=== PATIENT | male | born 1965 | race Caucasian/White ===

== ENCOUNTER 2021-05-17 13:21 | Observation (INO) ==
[~2021-05-17 13:21] MED LIST: ADENOSINE IV SOLN 3 MG/ML 2 ML VIAL IV ONE; dilTIAZem HCl 5 MG/ML 5 ML VIAL IV ONE
[2021-05-17] MEDS ORDERED: ASPIRIN CHEW 324 MG PO STA (13:28)
[2021-05-17] MEDS ORDERED: SODIUM CHLORIDE 0.9% 1000ML 1,000 ML IV STA (13:28)
[2021-05-17] MEDS ORDERED: STAT IV Infusion **Titration per Protocol STA (13:29)
[2021-05-17] MEDS ORDERED: dilTIAZem HCL 125 MG in DEXTROSE 5% 100 ML IV SCH (13:30)
[2021-05-17 13:51] LABS: Basophils # (auto) 0.03 K/uL (0-0.2); Basophils % (auto) 0.5 %; Eosinophils # (auto) 0.01 K/uL (0-0.5); Eosinophils % (auto) 0.2 %; Hematocrit (blood only) 41.2 % (42-52); Hemoglobin 14.5 g/dL (14.0-18.0); Immature Granulocytes # (auto) 0.01 K/uL (0.00-0.02); Immature Granulocytes % (auto) 0.2 %; Mean Corpuscular Hgb Conc 35.2 g/dL (32-36); Mean Corpuscular Volume 93.8 fL (80-100); Mean Platelet Volume 9.8 fL (7.4-10.4); Monocytes # (auto) 0.66 K/uL (0.11-0.59); Monocytes % (auto) 10.1 %; Platelet Count 205 K/uL (130-400); RDW Coefficient of Variation 13.3 % (11.5-14.5); RDW Standard Deviation 46.1 fL (36.4-46.3); Red Blood Count 4.39 M/uL (4.7-6.1); White Blood Count 6.51 K/uL (4.8-10.8)
[2021-05-17 13:56] LABS: iSTAT Creatinine 0.7 mg/dl (0.6-1.3); iSTAT Hemoglobin 14.3 g/dl (14.0-18.0); iSTAT Ionized Calcium 1.14 mmol/l (1.12-1.32); iSTAT Potassium 3.3 mmol/L (3.3-5.0)
[2021-05-17] MEDS ORDERED: OPTIRAY 320 125ml IV ONE (13:56)
[2021-05-17 14:06] LABS: INR 1.1 (0.9-1.1); Partial Thromboplastin Time 26.6 Seconds (21.0-31.0); Prothrombin Time 10.8 Seconds (9.0-12.0)
[2021-05-17 14:08] LABS: BUN Creatinine Ratio 24.1 (10-20); Blood Urea Nitrogen 17 mg/dl (7-18); Calcium 8.1 mg/dl (8.5-10.1); Carbon Dioxide 23 mmol/L (21-32); Chloride 109 mmol/L (98-107); Creatinine Clr Calc Pharmacy 132.7 ml/min; Est GFR (African American) 125.5 ml/min; Est GFR (Non-African American) 108.3 ml/min; Glucose 109 mg/dl (70-99); Lipase 77 U/L (73-393); Magnesium 1.7 mg/dl (1.8-2.4); Potassium 3.3 mmol/L (3.5-5.1); Sodium 142 mmol/L (136-145)
[2021-05-17 14:13] LABS: Troponin I < 0.015 ng/ml (0-0.045)
--- NOTE | 2021-05-17 14:20 | XRay Report ---
XR chest 1V portable HISTORY: 55 years-old Male Chest Pain acute atypical chest pain COMPARISON: CTA chest of same day, Chest radiograph 10/04/2020 TECHNIQUE: Portable AP view of the chest FINDINGS: Cardiac silhouette is mildly enlarged. Mild right hemidiaphragmatic elevation. No pneumothorax, pleur al effusion, airspace consolidation or overt pulmonary edema. The bones of the chest appear grossly i ntact. Degenerative changes of the shoulders and spine. IMPRESSION: No acute process. ACT 112: Negative or not required by law. The above report was generated using voice recognition software. It may contain grammatical, syntax o r spelling errors. Electronically signed by: Carl Hernandez M.D. 05/17/2021 2:18 PM
--- NOTE | 2021-05-17 14:26 | CT Scan Report ---
CT angio chest PE protocol CT DOSE: 606.42 mGy.cm HISTORY: 55 years-old Male with Chest Pain, eval for PE. Acute atypical chest pain with shortness o f breath TECHNIQUE: Multiple CTA images of the chest were obtained after the intravenous administration of 120 ml Optiray. Coronal and sagittal MIPS were obtained from the axial data set and were submitted for review. All measurements were obtained according to NASCET criteria. A dose lowering technique was u tilized adhering to the principles of ALARA. COMPARISON: Chest radiograph of same day FINDINGS: CTA: The heart is upper limits of normal in size. No pericardial effusion. Mild coronary artery calcificat ions. No thoracic aortic aneurysm or dissection. The inferior lung bases are partially imaged and are outside the [id number]. Subsegmental branches are not well opacified secondary to contrast bolus timing. No pulmonary emboli are identified. CT CHEST: Unremarkable thyroid. No adenopathy. No pneumothorax, pleural effusion, airspace consolidation or ove rt pulmonary edema. Minimal dependent bibasilar atelectasis. There are no suspicious pulmonary nodule s or masses. Central airways are patent. No pneumoperitoneum. No acute process of the imaged upper abdomen. There are a few cysts of the left hepatic lobe present measuring up to 1.5 cm. No acute fracture. Degenerative changes of the shoulders and spine. Several corticated ossifications project along the inferior margin of the right glenoid. IMPRESSION: No acute intrathoracic abnormality. No pulmonary emboli. ACT 112: Negative or not required by law. The above report was generated using voice recognition software. It may contain grammatical, syntax o r spelling errors. Electronically signed by: Carl Hernandez M.D. 05/17/2021 2:24 PM
[2021-05-17] MEDS ORDERED: POTASSIUM CHLORIDE CRTAB 20 MEQ TABCR PO STA (14:55)
[2021-05-17] MEDS: POTASSIUM CHLORIDE / WTR 10 MEQ/100 ML PLCT IV SCH ×2 (15:12→16:13)
[2021-05-17] MEDS: MAGNESIUM SULFATE / D5W 1 GM/100 ML BAG IV SCH ×2 (15:18→16:14)
--- NOTE | 2021-05-17 15:43 | History & Physical Report ---
Date of Service May 17, 2021 Assessment & Plan (1) Atrial fibrillation with RVR: Paroxysmal atrial fibrillation with RVR/hypertension/holiday heart- The patient will be admitted to telemetry for serial cardiac enzymes, serial EKG's, cardiac rhythm monitoring and a 2-D echocardiogram with Dopplers. Stop Cardizem drip that was just begun Hold lisinopril Place on metoprolol tartrate 25 mg p.o. twice daily Lopressor 5 mg IV every 4 hours as needed heart rate greater than 110 Klor-Con 40 mEq p.o. x1, K riders 10 mEq x 2, magnesium sulfate 2 g IV. NSS + KCl 20 mEq at 125 mils per hour Follow serial BMP and magnesium levels Counseling the patient regarding alcohol intake and recurrent holiday heart. 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 Check a fasting lipid panel Present on Admission?: Yes (4) HTN (hypertension): See above Present on Admission?: Yes (5) Hypokalemia: See above Present on Admission?: Yes (6) Hypomagnesemia: See above Present on Admission?: Yes (7) Dehydration: Replacing IV fluids as noted above. Present on Admission?: Yes History of Present Illness Chief Complaint: The patient presents to the emergency department with complaint of waking up this morning with palpitations similar to his previous episode of atrial fibrillation about 1 year ago. Primary Care Provider: Mamadou Pichardo The patient is a 55-year-old male with a past medical history including paroxysmal atrial fibrillation, dyslipidemia and hypertension. He presents to the emergency department in atrial fibrillation with RVR, in similar circumstances to his previous episode, where he has had significant alcohol intake over the past 3 days. He woke up this morning in atrial fibrillation with rapid heart rate, reports taking 2 metoprolol tartrate 25 mg tablets at 7 AM, took a third tablet at 9 AM, and then went out golfing in the hot sun. Work-up in the emergency department including the following significant laboratories: Potassium 3.3, magnesium 1.7. Patient was COVID-19 negative Chest x-ray showed no abnormalities. CT angiography of chest showed no PE or any other abnormalities. The patient was given adenosine 6 mg IV by the ED, then a 25 mg bolus of IV diltiazem, and then started on a diltiazem drip. He was also given aspirin 324 mg x 1 I discontinued diltiazem drip. He will get 40 mEq Klor-Con in the ED, along with KCl 10 mEq IV riders x2, and magnesium sulfate 2 g IV, before being admitted to telemetry unit Allergies Allergy/AdvReac Type Severity Reaction Status Date / Time No Known Allergies Allergy Unverified 05/17/21 15:15 Home Medications Medication Instructions Recorded Confirmed Type multivitamin with minerals [One 1 tab PO QDD 10/04/20 05/17/21 History Daily Men's 50+] lisinopril 40 mg tablet 40 mg PO QAM tab 10/09/20 05/17/21 History multivitamin 1 tab PO DAILY 05/17/21 05/17/21 History Past Med/Surg History Medical History HTN (hypertension) Surgical History No pertinent past surgical history Social History Smoking Status: Former smoker Feels Safe at Home: Yes Review of Systems Review of Systems: The patient denies cough, lower extremity swelling, sore throat, fevers, chills, sweats, nausea, vomiting, diarrhea , constipation, abdominal pain, pelvic pain, blood in urine or stool, dysuria, urinary frequency or urgency, lightheadedness, dizziness, headache, memory loss, loss of consciousness, rash, abnormal bruising or bleeding, imbalance, focal or generalized weakness, numbness or tingling in arms or legs, generalized arthralgias or myalgias, back or neck pain, or night sweats. The review of systems is otherwise negative other than for that already noted above, and at least 10 systems have been reviewed. Physical Exam Physical Exam: The patient is awake, alert and oriented 3, well developed and well nourished, normocephalic and atraumatic, lying in bed and in no acute distress. HEENT--PERRL, EOMI, mucous membranes and oropharynx mildly dry. Neck--supple. No JVD. No bruits. Thyroid normal, trachea midline, no adenopathy. Heart--irregularly irregular and tachycardic. No murmurs, rubs or gallops. Lungs--clear bilaterally, no respiratory distress, no accessory muscle use. Abdomen--normal bowel sounds and soft. Nontender. Nondistended, no hernias or masses, no organomegaly. Extremities--no cyanosis or clubbing. No edema. Dermatologic--normal skin turgor, normal color, no abnormal lymph nodes, no rash. Neurologic--cranial nerves II through XII grossly intact. Rheumatologic--normal range of motion. Psychiatric--normal affect. Results & Data Results & Data ([facility]) Vital Signs (Past 12 Hours) Vital Signs Temp Pulse Resp BP Pulse Ox 05/17/21 14:21 96 05/17/21 14:15 120 H 13 106/74 97 05/17/21 14:06 107 H 16 05/17/21 13:45 115 H 21 106/82 05/17/21 13:30 98 H 18 93/64 L 05/17/21 13:28 97 05/17/21 13:26 153 H 22 05/17/21 13:11 98.2 F 165 H 24 108/74 98 Laboratory Results Laboratory Results WBC 6.51 K/uL (4.8-10.8) 05/17/21 13:39 RBC 4.39 M/uL (4.7-6.1) L 05/17/21 13:39 Hgb 14.5 g/dL (14.0-18.0) 05/17/21 13:39 POC Hgb 14.3 g/dl (14.0-18.0) 05/17/21 13:44 Hct 41.2 % (42-52) L 05/17/21 13:39 POC Hct 42 % (42-52) 05/17/21 13:44 MCV 93.8 fL (80-100) 05/17/21 13:39 MCH 33.0 pg (25-34) 05/17/21 13:39 MCHC 35.2 g/dL (32-36) 05/17/21 13:39 RDW Std Deviation 46.1 fL (36.4-46.3) 05/17/21 13:39 RDW Coeff of Carrie 13.3 % (11.5-14.5) 05/17/21 13:39 Plt Count 205 K/uL (130-400) 05/17/21 13:39 MPV 9.8 fL (7.4-10.4) 05/17/21 13:39 Immature Gran % (Auto) 0.2 % 05/17/21 13:39 Neut % (Auto) 69.0 % 05/17/21 13:39 Lymph % (Auto) 20.0 % 05/17/21 13:39 Rice % (Auto) 10.1 % 05/17/21 13:39 Eos % (Auto) 0.2 % 05/17/21 13:39 Baso % (Auto) 0.5 % 05/17/21 13:39 Neut # (Auto) 4.50 K/uL (1.4-6.5) 05/17/21 13:39 Lymph # (Auto) 1.30 K/uL (1.2-3.4) 05/17/21 13:39 Rice # (Auto) 0.66 K/uL (0.11-0.59) H 05/17/21 13:39 Eos # (Auto) 0.01 K/uL (0-0.5) 05/17/21 13:39 Baso # (Auto) 0.03 K/uL (0-0.2) 05/17/21 13:39 Immature Gran # (Auto) 0.01 K/uL (0.00-0.02) 05/17/21 13:39 PT 10.8 Seconds (9.0-12.0) 05/17/21 13:39 INR 1.1 (0.9-1.1) 05/17/21 13:39 APTT 26.6 Seconds (21.0-31.0) 05/17/21 13:39 PTT Ratio 1.0 05/17/21 13:39 POC Sodium 143 mmol/L (135-144) 05/17/21 13:44 Sodium 142 mmol/L (136-145) 05/17/21 13:39 POC Potassium 3.3 mmol/L (3.3-5.0) 05/17/21 13:44 Potassium 3.3 mmol/L (3.5-5.1) L 05/17/21 13:39 POC Chloride 106 mmol/L (101-112) 05/17/21 13:44 Chloride 109 mmol/L (98-107) H 05/17/21 13:39 Carbon Dioxide 23 mmol/L (21-32) 05/17/21 13:39 POC Total CO2 20 mmol/L (24-31) L 05/17/21 13:44 Anion Gap 10.0 (3-11) 05/17/21 13:39 POC Anion Gap 20.0 mmol/L (16-25) 05/17/21 13:44 POC BUN 15 mg/dl (7-18) 05/17/21 13:44 BUN 17 mg/dl (7-18) 05/17/21 13:39 Creatinine 0.68 mg/dl (0.6-1.4) 05/17/21 13:39 POC Creatinine 0.7 mg/dl (0.6-1.3) 05/17/21 13:44 Est Cr Clr Drug Dosing 132.7 ml/min 05/17/21 13:39 Est GFR ( Amer) 125.5 ml/min 05/17/21 13:39 Est GFR (Non-Af Amer) 108.3 ml/min 05/17/21 13:39 BUN/Creatinine Ratio 24.1 (10-20) H 05/17/21 13:39 Glucose 109 mg/dl (70-99) H 05/17/21 13:39 POC Glucose (other) 113 mg/dl (70-99) H 05/17/21 13:44 Calcium 8.1 mg/dl (8.5-10.1) L 05/17/21 13:39 POC Ioniz Calcium Rik 1.14 mmol/l (1.12-1.32) 05/17/21 13:44 Magnesium 1.7 mg/dl (1.8-2.4) L 05/17/21 13:39 Troponin I < 0.015 ng/ml (0-0.045) 05/17/21 13:39 Lipase 77 U/L (73-393) 05/17/21 13:39 Ethyl Alcohol mg/dL < 3.0 mg/dl (0-3) 05/17/21 13:39 COVID-19 Eval Order Covid19 at [facility] 05/17/21 13:50 SARS-CoV-2 (PCR) NEGATIVE (Negative) 05/17/21 13:50 Impressions Chest CTA 05/17/21 13:28 CT angio chest PE protocol CT DOSE: 606.42 mGy.cm HISTORY: 55 years-old Male with Chest Pain, eval for PE. Acute atypical chest pain with shortness of breath TECHNIQUE: Multiple CTA images of the chest were obtained after the intravenous administration of 120 ml Optiray. Coronal and sagittal MIPS were obtained from the axial data set and were submitted for review. All measurements were obtained according to NASCET criteria. A dose lowering technique was utilized adhering to the principles of ALARA. COMPARISON: Chest radiograph of same day FINDINGS: CTA: The heart is upper limits of normal in size. No pericardial effusion. Mild coronary artery calcifications. No thoracic aortic aneurysm or dissection. The inferior lung bases are partially imaged and are outside the [id number]. Subsegmental branches are not well opacified secondary to contrast bolus timing. No pulmonary emboli are identified. CT CHEST: Unremarkable thyroid. No adenopathy. No pneumothorax, pleural effusion, airspace consolidation or overt pulmonary edema. Minimal dependent bibasilar atelectasis. There are no suspicious pulmonary nodules or masses. Central airways are patent. No pneumoperitoneum. No acute process of the imaged upper abdomen. There are a few cysts of the left hepatic lobe present measuring up to 1.5 cm. No acute fracture. Degenerative changes of the shoulders and spine. Several corticated ossifications project along the inferior margin of the right glenoid. IMPRESSION: No acute intrathoracic abnormality. No pulmonary emboli. ACT 112: Negative or not required by law. The above report was generated using voice recognition software. It may contain grammatical, syntax or spelling errors. Electronically signed by: Carl Hernandez M.D. 05/17/2021 2:24 PM Chest X-Ray 05/17/21 13:28 XR chest 1V portable HISTORY: 55 years-old Male Chest Pain acute atypical chest pain COMPARISON: CTA chest of same day, Chest radiograph 10/04/2020 TECHNIQUE: Portable AP view of the chest FINDINGS: Cardiac silhouette is mildly enlarged. Mild right hemidiaphragmatic elevation. No pneumothorax, pleural effusion, airspace consolidation or overt pulmonary edema. The bones of the chest appear grossly intact. Degenerative changes of the shoulders and spine. IMPRESSION: No acute process. ACT 112: Negative or not required by law. The above report was generated using voice recognition software. It may contain grammatical, syntax or spelling errors. Electronically signed by: Carl Hernandez M.D. 05/17/2021 2:18 PM Code Status & VTE Plan Code Status Full code VTE Prophylaxis Plan VTE Prophylaxis will be ordered: Yes PG Care Time/CCT Total # of Minutes Spent Total Time Spent with Patient: Total time spent is greater than 50% in coordination of care (as documented) at patient's floor/unit and/or counseling patient: Coding Level of Care Code 26071 Initial Inpt Care Lvl 3 Diagnoses Atrial fibrillation with RVR I48.91 Paroxysmal A-fib I48.0 Dyslipidemia E78.5 HTN (hypertension) I10 Hypokalemia E87.6 Hypomagnesemia E83.42 Dehydration E86.0
--- NOTE | 2021-05-17 15:51 | Emergency Department Note ---
History of Present Illness General Chief complaint: Chest Pain Stated complaint: CHEST PAIN, Time Seen by Provider: 05/17/21 13:28 History of Present Illness Provider complaint: Chest pain palpitations Onset (ago): day(s) 1 Location: chest Radiation: non-radiation Severity: moderate Pain Consistency: + intermittent Maximum Pain Intensity: 7 Current Pain Intensity: 1 Quality: + aching, + sharp and + dull Relieved By: + medication (ativan) Exacerbated By: + none Associated symptoms: + shortness of breath; no cough, no fever/chills, no headaches, no malaise, no nausea/vomiting, no seizure and no weakness 55-year-old male presents emergency department for chest pain. Patient reports his chest pain began earlier today. Pain is located left chest radiates down both his arms. He also reports difficulty breathing. Patient also reports numbness in his both of his arms. Patient called EMS. is at bedside and states patient has a history of holiday heart. states the patient has been in a golf tournament all weekend and been drinking alcohol alot. Patient states he had a a white claw this morning when symptoms started. and patient state a similar episode of holiday heart happened in September over while the patient was drinking a lot of alcohol. They state that they followed up with Dr. Butt outpatient cardiology who did testing and cleared him. They state that they were on eliquis but were taken off the eliquis. Patient states he took 2 doses of his home metoprolol at 7 AM and the palpitations and chest pain continued so he took an extra dose at 9 AM. Home Medications Medication Instructions Recorded Confirmed Type multivitamin with minerals [One 1 tab PO QDD 10/04/20 05/17/21 History Daily Men's 50+] lisinopril 40 mg tablet 40 mg PO QAM tab 10/09/20 05/17/21 History multivitamin 1 tab PO DAILY 05/17/21 05/17/21 History Allergies Allergy/AdvReac Type Severity Reaction Status Date / Time No Known Allergies Allergy Unverified 05/17/21 15:15 Past Med/Surg History Medical History (Updated 05/17/21 @ 16:11 by Anton Luther) Dyslipidemia HTN (hypertension) Paroxysmal A-fib Surgical History No pertinent past surgical history Social History Smoking Status: Former smoker Feels Safe at Home: Yes Review of Systems A total of 10 systems reviewed and were otherwise negative Physical Exam Vital Signs Vital Signs - 24 hr 05/17/21 13:11 05/17/21 13:20 05/17/21 13:26 Temperature 36.8 C Temperature Source Oral Pulse Rate 165 H 153 H Pulse Rate from SpO2 Sensor Pulse Rhythm Irregular Pulse Strength Normal Respiratory Rate 24 22 Respiratory Effort / Characteristics Non-Labored Non-Labored Respiratory Depth Normal Normal Respiratory Pattern Regular Blood Pressure 108/74 Blood Pressure Mean 85 Pulse Oximetry 98 Oxygen Delivery Method Room Air Room Air Sepsis Recent Fever Within 48 Hours No Sepsis New/Unexplained Change in Mental Status No Sepsis Action Taken by Nursing No Action Required 05/17/21 13:28 05/17/21 13:30 05/17/21 13:45 Temperature Temperature Source Pulse Rate 98 H 115 H Pulse Rate from SpO2 Sensor Pulse Rhythm Pulse Strength Respiratory Rate 18 21 Respiratory Effort / Characteristics Respiratory Depth Respiratory Pattern Blood Pressure 93/64 L 106/82 Blood Pressure Mean 73 90 Pulse Oximetry 97 Oxygen Delivery Method Room Air Sepsis Recent Fever Within 48 Hours Sepsis New/Unexplained Change in Mental Status Sepsis Action Taken by Nursing 05/17/21 14:06 05/17/21 14:15 05/17/21 14:21 Temperature Temperature Source Pulse Rate 107 H 120 H Pulse Rate from SpO2 Sensor 107 H Pulse Rhythm Pulse Strength Respiratory Rate 16 13 Respiratory Effort / Characteristics Respiratory Depth Respiratory Pattern Blood Pressure 106/74 Blood Pressure Mean 84 Pulse Oximetry 97 96 Oxygen Delivery Method Room Air Sepsis Recent Fever Within 48 Hours Sepsis New/Unexplained Change in Mental Status Sepsis Action Taken by Nursing Physical Exam GENERAL: He is oriented to person, place, and time. He appears well-developed and well-nourished. He does not appear distressed. HENT: Exam performed. - Head: Normocephalic and atraumatic. - Right Ear: External ear normal. No mastoid tenderness. - Left Ear: External ear normal. No mastoid tenderness. - Mouth/Throat: The oropharynx is clear and moist. No trismus in the jaw. No dental abscesses or uvula swelling. No oropharyngeal exudate or tonsillar abscesses. EYES: Conjunctivae and EOM are normal. Pupils are equal, round, and reactive to light. Right eye exhibits no discharge. Left eye exhibits no discharge. No scleral icterus. NECK: Normal range of motion. Neck supple. No JVD present. No spinous process tenderness present. No carotid bruit present. No rigidity. No tracheal deviation and normal range of motion present. No Brudzinski's sign and no Kernig's sign noted. CV: tachycardic rate, irregular rhythm, normal heart sounds and intact distal pulses. There is no peripheral edema. Palpable radial pulses bue. PULM/CHEST: Effort normal and breath sounds normal. No respiratory distress. No stridor. He has no wheezes. He has no rales. - Chest Wall: He exhibits no tenderness. ABD: The abdomen is soft. Bowel sounds are normal. He has no distension. No mass is present. There is no tenderness. There is no rebound, no guarding, no Wright's sign and no tenderness at McBurney's point. Rovsig negative. MUSC/SKEL: Normal range of motion. There is no peripheral edema, tenderness or deformity. LYMPH: No cervical adenopathy. NEURO: He is alert and oriented to person, place, and time. He has normal strength. No cranial nerve deficit or sensory deficit. Coordination and gait normal. GCS eye subscore is 4. GCS verbal subscore is 5. GCS motor subscore is 6. Cerebellar tests wnl. SKIN: Skin is warm and dry. He is not diaphoretic. PSYCH: He has a normal mood and affect. Behavior is normal. Judgment and thought content normal. Course Course 1318: Received call from EMS that patient was coming in. First EKG transmitted by EMS showed SVT. Patient does have a history of holiday heart so I ordered Ativan 1 mg. Repeat EKG at 1316 transmitted via EMS showed atrial fibrillation with a rate of 162. QRS and QTc intervals within normal limits. No ST elevations or depression. 1328: The patient was evaluated in room B1. A complete history and physical exam was performed Cardiac monitoring: An order was placed for continuous cardiac monitoring. The monitor shows a rate of 140 with atrial fibrillation rhythm Large-bore IV access was obtained. Patient stated that his chest pain went down from a 7 out of 10 to a 1 out of 10 status post the Ativan that was ordered via EMS. Aspirin ordered for the patient. Patient given 20 mg of Cardizem IV push which improved his ventricular rate. Patient will be placed on Cardizem drip. Will obtain labs and imaging of this patient as well as CTA of the chest as he is not on any blood thinners. It is thought that the patient is suffering from holiday heart due to his alcohol abuse. 1435: Vital signs stable on Cardizem drip. Labs within normal limits with exception of potassium of 3.3. Imaging shows no PE. [facility]. Administered Medications Potassium Chloride (K Nathan / Wtr) 10 meq in 100 mls @ 100 mls/hr IV Q1H ZORAIDA Stop: 05/17/21 16:59 Last Admin: 05/17/21 15:12 Dose: 100 mls/hr Documented by: [id number] Magnesium Sulfate/Dextrose (Magnesium Sulfate / D5w) 1 gm in 100 mls @ 50 mls/hr IV Q2H ZORAIDA Stop: 05/17/21 18:59 Last Admin: 05/17/21 15:18 Dose: 50 mls/hr Documented by: [id number] Discontinued Medications Adenosine (Adenosine Iv Soln 3 Mg/Ml 2 Ml Vial) Confirm Administered Dose 6 mg IV .STK-MED ONE Stop: 05/17/21 13:20 Last Admin: 05/17/21 14:23 Dose: Not Given Documented by: [id number] Aspirin (Aspirin Chew 324 Mg) 324 mg PO NOW STA Stop: 05/17/21 13:29 Last Admin: 05/17/21 13:44 Dose: 324 mg Documented by: [id number] Diltiazem HCl (Diltiazem Hcl 5 Mg/Ml 5 Ml Vial) Confirm Administered Dose 25 mg IV .STK-MED ONE Stop: 05/17/21 13:20 Last Increment: 05/17/21 13:44 Dose: 20 mg Documented by: [id number] Cosigned by: [id number] Sodium Chloride (Nss 1000ml) 1,000 mls @ 999 mls/hr IV .Q1H1M STA Stop: 05/17/21 14:28 Last Infusion: 05/17/21 14:50 Dose: 0 mls/hr Documented by: [id number] Admin: 05/17/21 13:44 Dose: 999 mls/hr Documented by: [id number] Diltiazem HCl 125 mg/ Dextrose 125 mls @ 5 mls/hr IV .Q24H ZORAIDA; Protocol Stop: 06/16/21 13:29 Last Titration: 05/17/21 14:51 Dose: 0 mg/hr, 0 mls/hr Documented by: [id number] Cosigned by: [id number] Admin: 05/17/21 14:07 Dose: 5 mg/hr, 5 mls/hr Documented by: [id number] Cosigned by: [id number] Ioversol (Optiray 320 125ml) 120 ml IV ONCE ONE Stop: 05/17/21 13:57 Last Admin: 05/17/21 13:57 Dose: 120 ml Documented by: [id number] Miscellaneous (Stat Iv Infusion Titration Per Protocol) 1 ea N/A NOW STA Stop: 05/17/21 13:30 Last Admin: 05/17/21 14:24 Dose: 1 ea Documented by: [id number] Potassium Chloride (Potassium Chloride Crtab 20 Meq Tabcr) 40 meq PO NOW STA Stop: 05/17/21 14:56 Last Admin: 05/17/21 15:10 Dose: 40 meq Documented by: [id number] Critical Care Time Critical Care Time: Yes Total Critical Care Time: 54 I have personally spent greater than 54 minutes of critical care time in the direct management of this patient. This includes bedside care, interpretation o f diagnostic studies, and testing, discussion with consultants, patient, and family members, and other required patient management activities. This 54 minutes is in excess of all separately billable procedures. Medical Decision Making Laboratory Data Result diagrams: 05/17/21 13:39 05/17/21 13:39 Lab Results 05/17/21 05/17/21 05/17/21 Range/Units 13:39 13:39 13:39 WBC 6.51 (4.8-10.8) K/uL RBC 4.39 L (4.7-6.1) M/uL Hgb 14.5 (14.0-18.0) g/dL POC Hgb (14.0-18.0) g/dl Hct 41.2 L (42-52) % POC Hct (42-52) % MCV 93.8 (80-100) fL MCH 33.0 (25-34) pg MCHC 35.2 (32-36) g/dL RDW Std Deviation 46.1 (36.4-46.3) fL RDW Coeff of Carrie 13.3 (11.5-14.5) % Plt Count 205 (130-400) K/uL MPV 9.8 (7.4-10.4) fL Immature Gran % (Auto) 0.2 % Neut % (Auto) 69.0 % Lymph % (Auto) 20.0 % [place] % (Auto) 10.1 % Eos % (Auto) 0.2 % Baso % (Auto) 0.5 % Neut # (Auto) 4.50 (1.4-6.5) K/uL Lymph # (Auto) 1.30 (1.2-3.4) K/uL [place] # (Auto) 0.66 H (0.11-0.59) K/uL Eos # (Auto) 0.01 (0-0.5) K/uL Baso # (Auto) 0.03 (0-0.2) K/uL Immature Gran # (Auto) 0.01 (0.00-0.02) K/uL PT 10.8 (9.0-12.0) Seconds INR 1.1 (0.9-1.1) APTT 26.6 (21.0-31.0) Seconds PTT Ratio 1.0 POC Sodium (135-144) mmol/L Sodium 142 (136-145) mmol/L POC Potassium (3.3-5.0) mmol/L Potassium 3.3 L (3.5-5.1) mmol/L POC Chloride (101-112) mmol/L Chloride 109 H (98-107) mmol/L Carbon Dioxide 23 (21-32) mmol/L POC Total CO2 (24-31) mmol/L Anion Gap 10.0 (3-11) POC Anion Gap (16-25) mmol/L POC BUN (7-18) mg/dl BUN 17 (7-18) mg/dl Creatinine 0.68 (0.6-1.4) mg/dl POC Creatinine (0.6-1.3) mg/dl Est Cr Clr Drug Dosing 132.7 ml/min Est GFR ( Amer) 125.5 ml/min Est GFR (Non-Af Amer) 108.3 ml/min BUN/Creatinine Ratio 24.1 H (10-20) Glucose 109 H (70-99) mg/dl POC Glucose (other) (70-99) mg/dl Calcium 8.1 L (8.5-10.1) mg/dl POC Ioniz Calcium Rik (1.12-1.32) mmol/l Magnesium 1.7 L (1.8-2.4) mg/dl Troponin I < 0.015 (0-0.045) ng/ml Lipase 77 (73-393) U/L Ethyl Alcohol mg/dL (0-3) mg/dl COVID-19 Eval Order SARS-CoV-2 (PCR) (Negative) 05/17/21 05/17/21 05/17/21 Range/Units 13:39 13:44 13:50 WBC (4.8-10.8) K/uL RBC (4.7-6.1) M/uL Hgb (14.0-18.0) g/dL POC Hgb 14.3 (14.0-18.0) g/dl Hct (42-52) % POC Hct 42 (42-52) % MCV (80-100) fL MCH (25-34) pg MCHC (32-36) g/dL RDW Std Deviation (36.4-46.3) fL RDW Coeff of Carrie (11.5-14.5) % Plt Count (130-400) K/uL MPV (7.4-10.4) fL Immature Gran % (Auto) % Neut % (Auto) % Lymph % (Auto) % [place] % (Auto) % Eos % (Auto) % Baso % (Auto) % Neut # (Auto) (1.4-6.5) K/uL Lymph # (Auto) (1.2-3.4) K/uL [place] # (Auto) (0.11-0.59) K/uL Eos # (Auto) (0-0.5) K/uL Baso # (Auto) (0-0.2) K/uL Immature Gran # (Auto) (0.00-0.02) K/uL PT (9.0-12.0) Seconds INR (0.9-1.1) APTT (21.0-31.0) Seconds PTT Ratio POC Sodium 143 (135-144) mmol/L Sodium (136-145) mmol/L POC Potassium 3.3 (3.3-5.0) mmol/L Potassium (3.5-5.1) mmol/L POC Chloride 106 (101-112) mmol/L Chloride (98-107) mmol/L Carbon Dioxide (21-32) mmol/L POC Total CO2 20 L (24-31) mmol/L Anion Gap (3-11) POC Anion Gap 20.0 (16-25) mmol/L POC BUN 15 (7-18) mg/dl BUN (7-18) mg/dl Creatinine (0.6-1.4) mg/dl POC Creatinine 0.7 (0.6-1.3) mg/dl Est Cr Clr Drug Dosing ml/min Est GFR ( Amer) ml/min Est GFR (Non-Af Amer) ml/min BUN/Creatinine Ratio (10-20) Glucose (70-99) mg/dl POC Glucose (other) 113 H (70-99) mg/dl Calcium (8.5-10.1) mg/dl POC Ioniz Calcium Rik 1.14 (1.12-1.32) mmol/l Magnesium (1.8-2.4) mg/dl Troponin I (0-0.045) ng/ml Lipase (73-393) U/L Ethyl Alcohol mg/dL < 3.0 (0-3) mg/dl COVID-19 Eval Order Covid19 at [facility] SARS-CoV-2 (PCR) (Negative) 05/17/21 Range/Units 13:50 WBC (4.8-10.8) K/uL RBC (4.7-6.1) M/uL Hgb (14.0-18.0) g/dL POC Hgb (14.0-18.0) g/dl Hct (42-52) % POC Hct (42-52) % MCV (80-100) fL MCH (25-34) pg MCHC (32-36) g/dL RDW Std Deviation (36.4-46.3) fL RDW Coeff of Carrie (11.5-14.5) % Plt Count (130-400) K/uL MPV (7.4-10.4) fL Immature Gran % (Auto) % Neut % (Auto) % Lymph % (Auto) % [place] % (Auto) % Eos % (Auto) % Baso % (Auto) % Neut # (Auto) (1.4-6.5) K/uL Lymph # (Auto) (1.2-3.4) K/uL [place] # (Auto) (0.11-0.59) K/uL Eos # (Auto) (0-0.5) K/uL Baso # (Auto) (0-0.2) K/uL Immature Gran # (Auto) (0.00-0.02) K/uL PT (9.0-12.0) Seconds INR (0.9-1.1) APTT (21.0-31.0) Seconds PTT Ratio POC Sodium (135-144) mmol/L Sodium (136-145) mmol/L POC Potassium (3.3-5.0) mmol/L Potassium (3.5-5.1) mmol/L POC Chloride (101-112) mmol/L Chloride (98-107) mmol/L Carbon Dioxide (21-32) mmol/L POC Total CO2 (24-31) mmol/L Anion Gap (3-11) POC Anion Gap (16-25) mmol/L POC BUN (7-18) mg/dl BUN (7-18) mg/dl Creatinine (0.6-1.4) mg/dl POC Creatinine (0.6-1.3) mg/dl Est Cr Clr Drug Dosing ml/min Est GFR ( Amer) ml/min Est GFR (Non-Af Amer) ml/min BUN/Creatinine Ratio (10-20) Glucose (70-99) mg/dl POC Glucose (other) (70-99) mg/dl Calcium (8.5-10.1) mg/dl POC Ioniz Calcium Rik (1.12-1.32) mmol/l Magnesium (1.8-2.4) mg/dl Troponin I (0-0.045) ng/ml Lipase (73-393) U/L Ethyl Alcohol mg/dL (0-3) mg/dl COVID-19 Eval Order SARS-CoV-2 (PCR) NEGATIVE (Negative) Imaging Data Radiologist's Impression: Chest CTA 05/17/21 13:28 CT angio chest PE protocol CT DOSE: 606.42 mGy.cm HISTORY: 55 years-old Male with Chest Pain, eval for PE. Acute atypical chest pain with shortness of breath TECHNIQUE: Multiple CTA images of the chest were obtained after the intravenous administration of 120 ml Optiray. Coronal and sagittal MIPS were obtained from the axial data set and were submitted for review. All measurements were obtained according to NASCET criteria. A dose lowering technique was utilized adhering to the principles of ALARA. COMPARISON: Chest radiograph of same day FINDINGS: CTA: The heart is upper limits of normal in size. No pericardial effusion. Mild coronary artery calcifications. No thoracic aortic aneurysm or dissection. The inferior lung bases are partially imaged and are outside the [id number]. Subsegmental branches are not well opacified secondary to contrast bolus timing. No pulmonary emboli are identified. CT CHEST: Unremarkable thyroid. No adenopathy. No pneumothorax, pleural effusion, airspace consolidation or overt pulmonary edema. Minimal dependent bibasilar atelectasis. There are no suspicious pulmonary nodules or masses. Central airways are patent. No pneumoperitoneum. No acute process of the imaged upper abdomen. There are a few cysts of the left hepatic lobe present measuring up to 1.5 cm. No acute fracture. Degenerative changes of the shoulders and spine. Several corticated ossifications project along the inferior margin of the right glenoid. IMPRESSION: No acute intrathoracic abnormality. No pulmonary emboli. ACT 112: Negative or not required by law. The above report was generated using voice recognition software. It may contain grammatical, syntax or spelling errors. Electronically signed by: Carl Hernandez M.D. 05/17/2021 2:24 PM Chest X-Ray 05/17/21 13:28 XR chest 1V portable HISTORY: 55 years-old Male Chest Pain acute atypical chest pain COMPARISON: CTA chest of same day, Chest radiograph 10/04/2020 TECHNIQUE: Portable AP view of the chest FINDINGS: Cardiac silhouette is mildly enlarged. Mild right hemidiaphragmatic elevation. No pneumothorax, pleural effusion, airspace consolidation or overt pulmonary edema. The bones of the chest appear grossly intact. Degenerative changes of the shoulders and spine. IMPRESSION: No acute process. ACT 112: Negative or not required by law. The above report was generated using voice recognition software. It may contain grammatical, syntax or spelling errors. Electronically signed by: Carl Hernandez M.D. 05/17/2021 2:18 PM ECG Data Additional Comments: EKG #1 at 1325: Atrial fibrillation with rate of 160. QRS and QTc intervals within normal limits. No ST elevation or ST depression. PVCs present. EKG #2 at 1331 status post Cardizem bolus: Atrial fibrillation with rate of 103. QRS and QTc intervals are within normal limits. No ST elevation or ST depression. [facility] Narrative 1318: Received call from EMS that patient was coming in. First EKG transmitted by EMS showed SVT. Patient does have a history of holiday heart so I ordered Ativan 1 mg. Repeat EKG at 1316 transmitted via EMS showed atrial fibrillation with a rate of 162. QRS and QTc intervals within normal limits. No ST elevations or depression. 1328: The patient was evaluated in room B1. A complete history and physical exam was performed Cardiac monitoring: An order was placed for continuous cardiac monitoring. The monitor shows a rate of 140 with atrial fibrillation rhythm Large-bore IV access was obtained. Patient stated that his chest pain went down from a 7 out of 10 to a 1 out of 10 status post the Ativan that was ordered via EMS. Aspirin ordered for the patient. Patient given 20 mg of Cardizem IV push which improved his ventricular rate. Patient will be placed on Cardizem drip. Will obtain labs and imaging of this patient as well as CTA of the chest as he is not on any blood thinners. It is thought that the patient is suffering from holiday heart due to his alcohol abuse. 1435: Vital signs stable on Cardizem drip. Labs within normal limits with exception of potassium of 3.3. Imaging shows no PE. [facility]. Impression & Plan Atrial fibrillation with RVR Discharge Plan Visit Data Chief Complaint: Chest Pain Stated Complaint: CHEST PAIN, ED Provider: Anton Luther Discharge Problem: Atrial fibrillation with RVR Patient Disposition: Admitted As Inpatient Forms Stand Alone Forms: My [facility] Prescriptions Prescriptions: No Action multivitamin with minerals [One Daily Men's 50+] Tablet 1 tab PO QDD RF: 0 lisinopril 40 mg tablet 40 mg PO QAM RF: 0 multivitamin Tablet 1 tab PO DAILY RF: 0 Referrals Referrals: Mamadou Pichardo [Primary Care Provider] -
[2021-05-17] MEDS ORDERED: ACETAMINOPHEN 325 MG TAB PO PRN (17:07)
[2021-05-17] MEDS ORDERED: METOPROLOL TARTRATE 1 MG/ML VIAL IV PRN (17:07)
[2021-05-17] MEDS ORDERED: ONDANSETRON INJ 2 MG/ML 2 ML VIAL IV PRN (17:07)
[2021-05-17] MEDS: NSS + 20MEQ KCL 20 MEQ/1,000 ML BAG IV SCH (17:55)
[2021-05-17] MEDS ORDERED: ENOXAPARIN INJ 40 MG/0.4 ML SYR SQ SCH (18:00)
[2021-05-17] MEDS: METOPROLOL TARTRATE 25 MG TAB PO SCH (18:39)
[2021-05-18] MEDS: NSS + 20MEQ KCL 20 MEQ/1,000 ML BAG IV SCH ×2 (01:12→08:00)
[2021-05-18 03:19] LABS: Basophils # (auto) 0.02 K/uL (0-0.2); Basophils % (auto) 0.3 %; Eosinophils # (auto) 0.07 K/uL (0-0.5); Hematocrit (blood only) 38.8 % (42-52); Hemoglobin 13.4 g/dL (14.0-18.0); Immature Granulocytes # (auto) 0.02 K/uL (0.00-0.02); Immature Granulocytes % (auto) 0.3 %; Lymphocytes # (auto) 2.49 K/uL (1.2-3.4); Mean Corpuscular Hemoglobin 33.1 pg (25-34); Mean Corpuscular Hgb Conc 34.5 g/dL (32-36); Mean Corpuscular Volume 95.8 fL (80-100); Mean Platelet Volume 9.5 fL (7.4-10.4); Monocytes # (auto) 0.66 K/uL (0.11-0.59); Monocytes % (auto) 9.3 %; Neutrophils # (auto) 3.85 K/uL (1.4-6.5); Neutrophils % (auto) 54.1 %; Platelet Count 183 K/uL (130-400); RDW Coefficient of Variation 13.8 % (11.5-14.5); RDW Standard Deviation 48.6 fL (36.4-46.3); Red Blood Count 4.05 M/uL (4.7-6.1); White Blood Count 7.11 K/uL (4.8-10.8)
[2021-05-18 03:43] LABS: Albumin Globulin Ratio 1.2 (0.9-2); Albumin Level 3.1 gm/dl (3.4-5.0); BUN Creatinine Ratio 20.7 (10-20); Bilirubin,Total 0.5 mg/dl (0.2-1); Calcium 7.7 mg/dl (8.5-10.1); Creatinine Clr Calc Pharmacy 111.9 ml/min; Est GFR (African American) 121.9 ml/min; Est GFR (Non-African American) 105.2 ml/min; Globulin 2.6 gm/dl (2.5-4.0); Magnesium 2.3 mg/dl (1.8-2.4); Potassium 4.7 mmol/L (3.5-5.1); Total Protein 5.7 gm/dl (6.4-8.2)
[2021-05-18] MEDS: METOPROLOL TARTRATE 25 MG TAB PO SCH (08:34)
[2021-05-18] MEDS ORDERED: ASPIRIN 81 MG ECTAB PO SCH (09:00)
--- NOTE | 2021-05-18 11:58 | XCELERA ---
[id number]
[2021-05-18] MEDS ORDERED: CEROVITE ADV FORMULA TAB PO SCH (16:30)
--- NOTE | 2021-05-18 17:32 | Electrocardiogram Report ---
Test Reason : Blood Pressure : / mmHG Vent. Rate : 160 BPM Atrial Rate : 141 BPM P-R Int : 000 ms QRS Dur : 088 ms QT Int : 282 ms P-R-T Axes : 000 -01 -13 degrees QTc Int : 460 ms Atrial fibrillation with rapid ventricular response with premature ventricular or aberrantly conducte d complexes Nonspecific ST and T wave abnormality Abnormal ECG When compared with ECG of 04-OCT-2020 10:29, Nonspecific T wave abnormality now evident in Inferior leads Confirmed by Kaden Tan ([id number]) on 05/18/2021 5:31:33 PM Referred By: REFERRED SELF Confirmed By:Tre Tan
--- NOTE | 2021-05-18 17:43 | Electrocardiogram Report ---
Test Reason : Blood Pressure : / mmHG Vent. Rate : 074 BPM Atrial Rate : 074 BPM P-R Int : 178 ms QRS Dur : 090 ms QT Int : 374 ms P-R-T Axes : 074 015 012 degrees QTc Int : 415 ms Normal sinus rhythm Normal ECG When compared with ECG of 17-MAY-2021 13:31, (unconfirmed) Sinus rhythm has replaced Atrial fibrillation ST elevation now present in Lateral leads Nonspecific T wave abnormality, improved in Inferior leads Nonspecific T wave abnormality no longer evident in Lateral leads Confirmed by Kaden Tan ([id number]) on 05/18/2021 5:42:57 PM Referred By: REFERRED SELF Confirmed By:Tre Tan
--- NOTE | 2021-05-18 19:10 | Discharge Summary ---
Date of Service May 18, 2021 Admission HPI Per Admitting Provider The patient is a 55-year-old male with a past medical history including paroxysmal atrial fibrillation, dyslipidemia and hypertension. He presents to the emergency department in atrial fibrillation with RVR, in similar circumstances to his previous episode, where he has had significant alcohol intake over the past 3 days. He woke up this morning in atrial fibrillation with rapid heart rate, reports taking 2 metoprolol tartrate 25 mg tablets at 7 AM, took a third tablet at 9 AM, and then went out golfing in the hot sun. Work-up in the emergency department including the following significant laboratories: Potassium 3.3, magnesium 1.7. Patient was COVID-19 negative Chest x-ray showed no abnormalities. CT angiography of chest showed no PE or any other abnormalities. The patient was given adenosine 6 mg IV by the ED, then a 25 mg bolus of IV diltiazem, and then started on a diltiazem drip. He was also given aspirin 324 mg x 1 I discontinued diltiazem drip. He will get 40 mEq Klor-Con in the ED, along with KCl 10 mEq IV riders x2, and magnesium sulfate 2 g IV, before being admitted to telemetry unit Principal Diagnosis Atrial fibrillation demand ischemia Discharge Exam The patient appeared well Vital signs as documented. Lungs are clear to auscultation and appear unlabored Cardiac exam, Rhythm is regular.. No murmurs, rubs or gallops. Abdominal exam reveals normal bowel sounds, soft non tender, no masses Extremities are nonedematous and both pedal pulses are normal. Neurologic exam is alert and oriented, no focal loss of strength or sensation Skin is without bruises or rashes Psychologically is without concerns for anxiety or depression. Discharge Data Allergies Allergy/AdvReac Type Severity Reaction Status Date / Time No Known Allergies Allergy Unverified 05/17/21 15:15 Consultations 05/17/21 14:32 ED Decision to Admit Stat 05/17/21 17:07 Consult Cardiology Routine Ordered Studies 05/17/21 13:28 CT angio chest PE protocol Stat Hospital Course (1) Atrial fibrillation with RVR: Paroxysmal atrial fibrillation with RVR/hypertension/?holiday heart- restart lisinopril Given metoprolol tartrate 25 mg p.o. twice daily, cardiology does not want to keep this at discharge normal echo Counseling the patient regarding alcohol intake and recurrent holiday heart. This is a second episode, which his reports is under exactly the same circumstances as the previous one Consult his sports announcer Dr. Butt, will have short term follow up (2) Paroxysmal A-fib: See above (3) Dyslipidemia: On no specific treatment. Check a fasting lipid panel (4) HTN (hypertension): See above (5) Hypokalemia: See above (6) Hypomagnesemia: See above (7) Dehydration: Replacing IV fluids as noted above. (8) Demand ischemia: out pt cardiology can continue work up, pt typially with no exertional symptoms Total Time Total Time Spent Total Time Spent (In Minutes): It required greater than 30 minutes to prepare this patient for discharge Discharge Plan Discharge Items Patient Disposition: Home - Self-Care Reason For Visit: A-FIB WITH RVR Discharge Diagnosis: artrial fibrillation Activity: Resume your previous activity Non-emergency contact: Primary Care Provider and Negative Retoucher Call non-emergency contact if: you have any medication questions and your symptoms worsen Follow-up/Referrals: Davonte Butt MD [Physician] - 05/21/21 2:15 pm Mamadou Pichardo [Primary Care Provider] - 05/21/21 9:50 am (Your discharge f ollow-up with be with Dr. Wade at Dr. Pichardo's office) Diet: Regular Diet Comment: please limit caffiene to 2 servings a day and limit alcohol Addtl Attending Provider Instructions: You had another bout of Atrial fibrillation. This condition develops when the upper two chambers of the heart (atria) do not work in co-ordination with the lower two chambers (ventricles) of the heart. Mainly noted symptoms include heart palpitations, shortness of breath, and weakness. Treatment aims to reset the heart's rhythm or rate to normal. This condition can be seen in healthy individuals who have excessive alcohol intake. Pending Studies at Discharge: No Stand-Alone Forms: My [employer], Smoking Cessation Medications and DC Order Prescriptions: Continued multivitamin with minerals Tablet 1 tab PO QDD RF: 0 lisinopril 40 mg tablet 40 mg PO QAM RF: 0 multivitamin Tablet 1 tab PO DAILY RF: 0 Discharge Orders: Discharge Order (Routine); Ordered 05/18/21 Ordered By: Chris Jones/Other Patient Handouts: Understanding Atrial Fibrillation, ED Dehydration (Adult) Admission Data Admit Date/Time: 05/17/21 15:29 Attending Provider: Chris Marshall Admit Provider: Rafy Wolf Primary Care Provider: Mamadou Pichardo Other Providers: Rafy Wolf ; Davonte Butt Other Interventions: Discharge Summary Assessment (RN) Last Done: 05/18/21 11:26 Coding Level of Care Code D/C DAY MANAGEMENT >30 MINS Diagnoses Atrial fibrillation with RVR I48.91 Paroxysmal A-fib I48.0 Dyslipidemia E78.5 HTN (hypertension) I10 Hypokalemia E87.6 Hypomagnesemia E83.42 Dehydration E86.0 Demand ischemia I24.8
--- NOTE | 2021-05-18 22:03 | Cardiology Consultation ---
Date of Consultation May 18, 2021 Assessment & Plan (1) Atrial fibrillation with RVR: Patient have another episode of atrial fibrillation associated with heavy drinking. This could be characterized as holiday heart. He is likely also dehydrated and did take several dose of metoprolol which may account for some of the dizziness he experience leading up to his admission. We discussed the need to limit alcohol intake on such occasions. This would likely reduce his risk of recurrent episodes. He could continue to take metoprolol on an as-needed basis. Additionally in the absence of other symptoms he could simply stay home and rest and would likely convert on his own within several hours. We did touch on the stroke risk associated with atrial fibrillation. He does have a diagnosis of hypertension. This places the min and category of patients with a relatively low risk of stroke. We did discuss the utility of anticoagulation in the risks of bleeding. Based on shared decision making at this time he has elected to forego systemic anticoagulation. History of Present Illness Reason for Consultation: Atrial fibrillation Requesting Physician: Joanna Attending Physician: Chris Marshall MD History of Present Illness The patient is a 55-year-old gentleman with a history of 1 prior episode of atrial fibrillation associated with heavy alcohol use. The patient developed recurrent symptoms of palpitations early yesterday morning. These symptoms were manifest by a sense of an irregular and rapid heartbeat in association with some chest discomfort and dizziness. The symptoms became progressive throughout the course of the morning the patient eventually sought medical attention. He did not suffer syncope. He had an element of mild dyspnea. He did recognize the symptoms as atrial fibrillation and did take 3 doses of metoprolol tartrate 25 mg over the course of several hours. Interestingly, the patient's symptoms began after a day of heavy drinking. He was participating in a golf tournament in a been outside coughing for most of the day. On the day of admission he was also coughing and drinking. He does not generally drink alcoholic beverages but occasionally will have several alcoholic drinks at 1 time. The patient spontaneously converted to sinus rhythm early this morning. His symptoms resolved at that time. He is generally an active individual who does not have limiting dyspnea or symptoms of exertional chest pain. Allergies Allergy/AdvReac Type Severity Reaction Status Date / Time No Known Allergies Allergy Unverified 05/17/21 15:15 Home Medications Medication Instructions Recorded Confirmed Type multivitamin with minerals 1 tab PO QDD 10/04/20 05/17/21 History lisinopril 40 mg tablet 40 mg PO QAM tab 10/09/20 05/17/21 History multivitamin 1 tab PO DAILY 05/17/21 05/17/21 History Patient History Medical History (Updated 05/19/21 @ 00:05 by Danielle Anders) Dyslipidemia HTN (hypertension) Paroxysmal A-fib Surgical History No pertinent past surgical history Social History Smoking Status: Former smoker Hx Alcohol Use: Yes Alcohol type: beer and wine Hx Substance Use: No Preferred Language: Ken[place] Communication Ability: Effective Accounting System Expert Required: No Beliefs That Will Affect Care: None Current Living Situation: Spouse Feels Safe at Home: Yes Assistive Devices: None Review of Systems Review of Systems: Per HPI Physical Exam Physical Exam: The patient is alert and oriented. Mood and affect appeared normal. He answered all questions appropriately. HEENT: Pupils are equal and reactive to light and accommodation. Extraocular movements are intact. The sclerae are anicteric. Neuro: Cranial nerves intact Neck: Patient's neck is supple. He has palpable carotid pulses bilaterally w ithout bruits on auscultation. There is no evidence of jugular venous distention. The thyroid is not enlarged. Lungs: Clear to auscultation bilaterally. He has good air movement without use of accessory muscles. No rales wheezes or rhonchi. Cardiac: Heart demonstrates a regular rate and rhythm. Normal S1 and S2. No murmurs on examination. Pulses: The patient has palpable radial pulses bilaterally that are equal in intensity Extremities: There was no evidence of hypoperfusion. There is no cyanosis or clubbing. There is no edema. Skin: I did not appreciate any rashes on examination today. Results & Data ([facility]) Vital Signs (Past 12 Hours) Vital Signs Temp Pulse Pulse Resp BP Pulse Ox 05/18/21 11:45 36.5 C 62 18 134/94 97 05/18/21 11:26 36.6 C 75 69 18 123/82 97 Diagnostic Findings Initial EKG demonstrated atrial fibrillation with rapid ventricular response. Echocardiogram performed today revealed normal LV systolic function. Stage I diastolic dysfunction. No significant valvular heart disease. Normal left atr ial size PG Care Time/CCT Total # of Minutes Spent Total Time Spent with Patient: Total time spent is greater than 50% in coordination of care (as documented) at patient's floor/unit and/or counseling patient: Coding Level of Care Code 00240 Office/OBS Consult Lvl 4 Diagnoses Atrial fibrillation with RVR I48.91
== END 2021-05-18 12:35 | disposition home or self-care (01) ==
LOC: ED 13:21 → INTOOBSV 15:29 → SUATTDRO 15:29 → 2S 15:29

== ENCOUNTER 2024-11-13 05:22 | Observation (INO) ==
--- NOTE | 2024-09-27 15:47 | PAT Medication Instructions ---
Medication Instructions Date of Service September 27, 2024 Home Medications Medication Instructions Recorded metoprolol tartrate 25 mg tablet 25 mg PO BID PRN palpitations #180 03/06/24 tabs multivitamin with minerals 1 tab PO QPM lisinopril 40 mg tablet 40 mg PO QAM vitamin B complex (B Complex-Vitamin B12 tablet) 1 tab PO QPM metoprolol tartrate 25 mg tablet 25 mg PO BID PRN palpitations DO NOT take the morning of surgery lisinopril 40 mg tablet 40 mg PO QAM Take morning of surgery With a small sip of water, OTHERWISE NOTHING TO EAT OR DRINK AFTER MIDNIGHT: metoprolol tartrate 25 mg tablet 25 mg PO BID PRN palpitations (if needed) Take evening before surgery multivitamin with minerals 1 tab PO QPM vitamin B complex (B Complex-Vitamin B12 tablet) 1 tab PO QPM metoprolol tartrate 25 mg tablet 25 mg PO BID PRN palpitations (if needed) Other Notes If you have any questions please call us at [phone] or [phone] or [phone] or [phone]
--- NOTE | 2024-10-15 12:45 | Anesthesiology Consultation ---
Date of Service October 15, 2024 Assessment & Plan (1) Encounter for pre-operative examination: - Outpatient joint assessment: Patient is currently scheduled for inpatient pathway. If re-evaluated and patient/surgeon requests outpatient pathway, patient is not ideal candidate for outpatient joint program from anesthesia standpoint. Chart Review Chart Review: Acceptable Risk for Surgery and Patient seen in Pre Admission Testing Teaching & Discussion Pre-Anesthesia Teaching/Discussion Notes: Instructed NPO after midnight before surgery, except medications with 15 cc of water. Medication instructions provid ed according to the PAT guidelines. History Surgery Operation Date: 11/13/24 07:00 Proposed Procedures p Right Total Shoulder Arthroplasty Versus - Cal Marii Wyman MD s Reverse Right Total Shoulder Arthroplasty and Distal Clavicle Excision - Cal Marii Wyman MD Height/Weight Height: 5 ft 8 in Weight: 80.7 kg Allergies Allergy/AdvReac Type Severity Reaction Status Date / Time No Known Allergies Allergy Verified 09/27/24 09:01 Medications Home Medications Medication Instructions Recorded Confirmed Last Taken multivitamin with minerals 1 tab PO QPM 10/04/20 09/27/24 05/17/21 lisinopril 40 mg tablet 40 mg PO QAM 10/09/20 09/27/24 05/17/21 vitamin B complex (B 1 tab PO QPM 05/21/21 09/27/24 Unknown Complex-Vitamin B12 tablet) metoprolol tartrate 25 mg tablet 25 mg PO BID PRN palpitations #180 03/06/24 09/27/24 Unknown tabs Past Medical History Medical History (Updated 10/15/24 @ 13:08 by Bina Olivarez PA-C) Dyslipidemia Hx History of COVID-19 (~08/2020) 08/2020- tinnitus left ear (started after having after Covid and Covid vaccination) Hypertension controlled, stable per pt Paroxysmal A-fib "No issues for several years, meds are prn" Patient states follows with [facility] cardio yearly (last visit 12/2021)-denies palpitations or needing to take metoprolol since last office visit Patient denies h/o stroke, seizures, heart attack, heart failure, DM, blood clots/DVTs or blood transfusions. Exercise / Class Metabolic Activity II 4-5 Yardwork/Stairs/Walk up hill (denies chest discomfort or shortness of breath with one flight of stairs) Past Surgical History Surgical History Family history of reaction to anesthesia Both daughters- severe N/V with c-sections History of lumbar surgery L2, 2011 History of open reduction and internal fixation (ORIF) procedure right wrist Hx of colonoscopy Hx of decompression of ulnar nerve left Past Anesthesia History No Hx of Anesthesia Complications and Other History of PONV No Hx of PONV and No Hx of Motion Sickness Social History Smoking Status: Former smoker Do You Dip or Chew Tobacco: No Smoking End Date: 2009 Hx Alcohol Use: Yes Alcohol type: beer alcohol intake frequency: other Alcohol Intake Frequency Comment: 1-3 drinks/week Hx Substance Use: Yes substance use type: former substance user and crack/cocaine Last Used Substance Other:: at least 20 years ago Review of Systems Patient denies chest pain, shortness of breath, dyspnea on exertion, snoring, witnessed apneas, reflux, fever, chills, cough, wheezing, or palpitations. Physical Exam Vital Signs Vitals BP 128/92 P 60 TEMP 98.0 SP02 95% on RA RESP 19 Physical Patient resting comfortably in chair in no acute distress, alert and oriented, responding appropriately throughout visit Full cervical extension range of motion without pain TMD 3.5 finger breadths Mallampati Score 2 Dentition: two crowns, denies chipped or loose teeth, caps, implants or bridges Lungs: normal respiratory effort. Good air movement, clear throughout to auscultation, no adventitious breath sounds Cardiac: regular rate and rhythm, no murmurs noted Carotid arteries: negative bruit bilat Lab Results Anesthesia Preop Results Results Anesthesia Widget: WBC 7.98 K/ul (4.8-10.8) 10/15/24 Hgb 16.0 g/dl (14.0-18.0) 10/15/24 Hct 45.0 % (42.0-52.0) 10/15/24 Plt 302 K/uL (130-400) 10/15/24 Na 136 mmol/L (136-145) 10/15/24 K 4.5 mmol/L (3.5-5.1) 10/15/24 Cl 102 mmol/L (98-107) 10/15/24 CO2 27 mmol/L (21-32) 10/15/24 BUN 16 mg/dl (6-23) 10/15/24 Creat 0.72 mg/dl (0.6-1.4) 10/15/24 Glucose Level 101 mg/dl (70-99(Fasting)) H 10/15/24 PT 10.9 Seconds (9.0-12.0) 10/15/24 PTT 28 Seconds (21-31) 10/15/24 INR 1.0 (0.9-1.1) 10/15/24 Urine Color Yellow 10/15/24 Urine Appearance Clear (Clear) 10/15/24 Urine pH 7.0 (4.5-7.5) 10/15/24 Urine Specific [place] 1.015 (1.000-1.030) 10/15/24 Urine Protein Negative (Negative) 10/15/24 Urine Glucose (UA) Negative (Negative) 10/15/24 Urine Ketones Negative (Negative) 10/15/24 Urine Blood Negative (Negative) 10/15/24 Urine Nitrite Negative (Negative) 10/15/24 Urine Bilirubin Negative (Negative) 10/15/24 Urine Urobilinogen Negative (Negative) 10/15/24 Urine Leukocyte Esterase Negative (Negative) 10/15/24 Blood Type A Positive 10/15/24 Antibody Screen NEGATIVE 10/15/24 Testing Electrocardiogram Date: 10/15/24 Sinus bradycardia, rate 53 bpm Chest X-Ray Date: 10/15/24 No acute chest disease. Echocardiogram Date: 05/18/21 EF 55-60% Normal LV wall motion Grade I diastolic dysfunction No significant valvular heart disease
--- OUTSIDE RECORDS SUMMARY | 2024-11-13 05:25 | External Medical Summary | Continuity of Care Document ---
Author Name Unknown Organization [address] [place] [id number] Care Team Providers Care Director Of Kids Name Role Phone Mamadou Pichardo Primary Care Physician [phone] Encounter [facility] [id number] Date(s): 10/17/24 - 10/17/24 [facility] 0 [facility] 207 [facility] [address] [facility], [facility] [address] [place] [address] [phone] Encounter Diagnosis Pre-op evaluation(Discharge Diagnosis) - 10/17/24 Discharge Disposition: Home or Self Care Attending Physician: MD Shikha, See Chu Allergies, Adverse Reactions, Alerts No Known Allergies Assessment and Plan Extracted from: Title:Office Visit Note - APSO Author:MD Leonor Pompeii Date:10/17/24 1.Pre-op evaluation Patient presenting today for a pre-op evaluation before having a r. shoulder replacement surgery. No CHF, Hx ofcerebrovascularor cardiovasculardz, andlastCr of0.72 [id number] score of 0 (class I risk). [place] with [facility] for paroxysmal AFiband HTNand on metoprolol and lisinopril for this. Patient with low risk for complications if undergoing a shoulder replacement surgery. Immunizations Given and Recorded Vaccine Date Status Refusal Reason hepatitis B adult vaccine 01/25/22 Given hepatitis B adult vaccine 12/19/21 Given zoster vaccine, inactivated 01/25/22 Given zoster vaccine, inactivated 06/13/19 Given tetanus/diphtheria/pertuss, acel (Tdap) 12/19/21 G iven SARS-CoV-2 (COVID-19) mRNA BNT-162b2 vax 1 01/14/21 Recorded SARS-CoV-2 (COVID-19) mRNA BNT-162b2 vax 2 12/24/20 Recorded measles/mumps/rubella virus vaccine 01/13/67 Recor ded 1Result Comment: 2021-08-25: Historical information-source unspecified 2Result Comment: 2021-08-25: Historical information-source unspecified Medications Crestor 10 mg oral tablet Start: 12/30/23 8:48:00 AM EST, 1 tab, PO, Daily, Disp# 90 tab, Refills: 4, Pharmacy: [facility]/pharmacy #[id number] Start Date: 12/30/23 Stop Date: 03/24/25 Status: Ordered ibuprofen Start: 09/21/21 2:57:00 PM EST, 800 mg =, PO, as needed Start Date: 09/21/21 Status: Ordered lisinopril 40 mg oral tablet Start: 12/30/23 8:49:00 AM EST, See Instructions, Disp# 90 tab, Refills: 4, TAKE 1 TABLET BY MOUTH EVERY DAY at hs, Pharmacy: [facility]/pharmacy #[id number] Start Date: 12/30/23 Status: Ordered meclizine 25 mg oral tablet Start: 03/07/23 2:48:00 PM EDT, 1 tab, PO, tid, Disp# 30 tab, try half a pill on day 1, PRN: as needed for dizziness, Pharmacy: [facility]/pharmacy #[id number] Start Date: 03/07/23 Status: Ordered Metoprolol Tartrate 25 mg oral tablet 1 tab, PO, Daily, TAKE 1 TABLET ORALLY TWICE A DAY NEEDED FOR PALPITATIONS Start Date: 06/30/23 Status: Ordered multivitamin Start: 10/16/10 9:04:35 AM EST, 1 cap, PO, Daily, Refills: 0, current medication from another provider Start Date: 10/16/10 Status: Ordered Eitzen-3 oral capsule Start: 06/04/19 1:02:00 PM EDT, Daily Start Date: 06/04/19 Status: Ordered Sutab oral tablet Start: 08/30/23 7:21:00 AM EDT, See Instructions, Disp# 24 tab, Refills: 0, Follow instructions from [facility] Sutab Coupon: BIN: [id number] PCN: [id number] Group: [id number] , Pharmacy: [facility]/pharmacy #[id number] Start Date: 08/30/23 Status: Ordered triamcinolone 0.1% topical ointment Start: 06/30/23 12:34:00 PM EDT, 1 appl, topical, tid, Disp# 60 g, Refills: 2, as directed apply a thin film to affected area, Pharmacy: [facility]pharmacy #[id number] Start Date: 06/30/23 Stop Date: 09/28/23 Status: Ordered Vitamin D3 5000 intl units (125 mcg) oral capsule Start: 11/10/20 4:36:00 PM EST Start Date: 11/10/20 Status: Ordered Mental Status 10/17/24 Barriers to Learning one year None evide nt Mandatory Health Literacy Documentation Yes Health Literacy Communication Barriers N ever Primary Language [place] Problem List Condition Confirmation Course Effective Dates Status H ealth Status Informant Anxiety Confirmed Active Glenohumeral arthritis Confirmed Active Afib Confirmed Active BONE'S PALSY Confirmed Active Biceps tendon 1 Confirmed Active DEPRESSION Confirmed Active Dyslipidemia Confirmed Active Former smoker Confirmed Active FH: cardiovascular disease Confirmed Active Hemangioma Confirmed Active HTN - Hypertension Confirmed Active Skin lesion of face Confirmed Active Annual physical exam Confirmed Active Prediabetes, prediabetic Confirmed Active Seborrheic keratosis Confirmed Active Right shoulder pain Confirmed Active Skin lesion Confirmed Active Strain of calf muscle Confirmed Active Thrombosed hemorrhoids Confirmed Active Tinnitus Confirmed Active Tobacco user Confirmed Active Weight disorder Confirmed Active WRIST FRACTURE 2 Confirmed Active 1 2right - l987 Diagnosis Diagnosis Type Effective Dates Health Status Clinical Service Informant Pre-op evaluation Discharge Diagnosis 10/17/24 Non-Specified Procedures Procedure Date Related Diagnosis Body Site Status Colonoscopy 1, 2, 3 09/02/23 Compl eted Coronary artery calcium score 4 08/22/23 Completed MRI of head 5 05/17/23 Completed Shave biopsy and cauterizati on of skin 6 01/19/[address] 7 05/17/21 Completed CXR - Chest X-ray 8 05/17/21 Compl eted Cardiac echo 9 12/01/20 Completed Chest x-ray 10 10/04/20 Completed Colonoscopy 11, 12 11/17/17 Comple pratik Shave biopsy 11/20/15 Completed History of lumbar spine surgery 13 11/07/13 Completed Arthroscopy 14 11/07/05 Completed Left ulnar nerve 2004 Complete d 1Repeat colonoscopy in 5 years. 2Sigmoid colon Hyperplastic polyp. 3- Five 2 to 3 mm polyps in the sigmoid colon, removed with a cold biopsy forceps. Resected and retrieved. - Internal hemorrhoids. - Diverticulosis in the left colon. - The examination was otherwise normal on direct and retroflexion views. 4Your CORONARY CALCIUM SCORE was = 88 c/w MIld CAD Left Main = 14 LAD = 74 LCx = 0 RCA = 0 5No acoustic Neuroma--_WNL. 6left nasal alar crease 7IMPRESSION: No acute intrathoracic abnormality. No pulmonary emboli. 8IMPRESSION: No acute process. 9CONCLUSIONS Normal LV size and systolic function with no regional wall motion abnormalities. Ejection fraction is 55%. No left ventricular hypertrophy. Grade I diastolic dysfunction of the left ventricle (impaired relaxation pattern) with normal left atrial pressure. Normal RV size and function. Normal atria. No significant valvular pathology. Normal estimated pulmonary artery pressures. No previous studies for comparison [id number] 10No acute process 11non bleeding internal hemorrhoids. Diverticulosis in the sigmoid colon. One 3 mm polyp a the hepatic flexure,removed with old biopsy forceps. 12pathology-tubular adenoma 13disc resection 14right knee - Dr. Hutchison Vital Signs Most recent to oldest [Reference Range]: 1 Patient Weight 81.2 kg (10/17/24 9:54 AM) Heart Rate 65 bpm (10/17/24 9:54 AM) Respiratory Rate 17 br/min (10/17/24 9:54 AM) Blood Pressure 124/90mmHg (10/17/24 9:54 AM) Cuff Pulse Pressure 34 mmHg (10/17/24 9:54 AM) Social History Social History Type Response Tobacco Former smoker, Cigar ettes, 15 year(s). Total pack years: 15. 1 Smoking Status Never smoked cigaret jessika Sex Male Sex Representation Male (finding) 1QUIT in 2011 [facility] Outpt Note * MD Leonor, Kaden: SENG Sharpe MD, All Nevarez: MODIFY Event Display: [facility]CM Outpt Note Authored Date: Assessment/Plan 1.Pre-op evaluation Patient presenting today for a pre-op evaluation before having a r. shoulder replacement surgery. No CHF, Hx ofcerebrovascularor cardiovasculardz, andlastCr of0.72 [id number].RCRI score of 0 (class I risk). [place] with [facility] for paroxysmal AFiband HTNand on metoprolol and lisinopril for this. Patient with low risk for complications if undergoing a shoulder replacement surgery. Attestation I separately obtained a brief history and evaluation on this patient, discussed the case with and agree with the assessment and plan of Dr. Galvez. Chief Complaint Pre-op - Nov 13 R shoulder surgery. History of Present Illness Patient is a 59 yo M w/ a PMHxof AFib,anxiety/depression, HTN, HLD, former smoker, Hx ofBell's palsy, tinnitus, seborrheic keratosis, who's presenting today for a pre-op appt before having a r.shoulder replacement surgery. HPI Preoperative evaluation Requested by/Surgeon: Dr. Wyman Planned surgery:intermediate risk (intraperitoneal, intrathoracic, CEA, head/neck, ortho, prostate) Planned anesthesia:general Exercise tolerance:4 METs (climbing 1 flight, walking up hill, level ground @ 4mph, heavy house work) Bleeding tendency/history: none Substance use per social history in EHR: Former smoker of 15 years but quit 12 yrs ago; 3 drinks/week; no recreational drug use Prior response to anesthesia: none Revised Cardiac Risk Index: Score [0] [N] High Risk Surgery [N]Ischemic Heart Disease [N]History of CHF [N]History of cerebrovascular disease [N]Insulin therapy for DM [N]Pre-op Cr >2, Cr 0.72 Physical Exam Vitals & Measurements HR:65(Monitored) RR:17 BP:124/90 SpO2:98% WT:81.200kg(Dosing) WT:81.2kg PHQ2 Data(Data Documented on:10/17/2024 09:53) Emotional health assessment NEGATIVE General: Alert and oriented, No acute distress HEENT: Normocephalic, atraumatic Cardiovascular: Normal rate, Regular rhythm, No murmur, No gallop. Respiratory: Lungs are clear to auscultation, Respirations are non-labored, Breath sounds are equal; no crackles or wheezes noted Gastrointestinal: Soft, Non-tender, Non-distended, Normal bowel sounds. Psych: Mood-affect congruence. Speech is of normal pace and content Problem List/Past Medical History Ongoing Afib Annual physical exam Anxiety BONE'S PALSY Biceps tendon DEPRESSION Dyslipidemia FH: cardiovascular disease Former smoker Glenohumeral arthritis Hemangioma HTN - Hypertension Prediabetes, prediabetic Right shoulder pain Seborrheic keratosis Skin lesion Skin lesion of face Strain of calf muscle Thrombosed hemorrhoids Tinnitus Tobacco user Weight disorder WRIST FRACTURE Resolved Community acquired pneumonia Cough Gastroenteritis HDL Knee injury Knee pain Pes anserine bursitis Procedure/Surgical History Colonoscopy| Service Date: 09/02/2023oronary artery calcium score| Service Date: 08/22/2023MRI of head| Service Date: 05/17/2023Shave biopsy and cauterization of skin| Service Date: 01/19/2022XR - Chest X-ray| Service Date: 05/17/2021hest CT| Service Date: 05/17/2021ardiac echo| Service Date: 12/01/2020hes x-ray| Service Date: 10/04/2020Colonoscopy| Service Date: 11/17/2017Shave biopsy| Service Date: 11/20/2015History of lumbar spine surgery| Service Date:11/07/2013rthroscopy| Service Date: 11/07/2005Left ulnar nerve| Service Date: 2003 Medications cholecalciferol(Vitamin D3 5000 intl units (125 mcg) oral capsule) ibuprofen, 800 mg, PO lisinopril(lisinopril 40 mg oral tablet), See Instructions, 4 refills magnesium sulfate/potass Cl/sodium sulf(Sutab oral tablet), See Instructions meclizine(meclizine 25 mg oral tablet), 25 mg= 1 tab, PO, tid, PRN metoprolol(Metoprolol Tartrate 25 mg oral tablet), 25 mg= 1 tab, PO, Daily multivitamin, 1 cap, PO, Daily omega-3 polyunsaturated fatty acids(Eitzen-3 oral capsule), Daily rosuvastatin(Crestor 10 mg oral tablet), 10 mg= 1 tab, PO, Daily, 4 refills triamcinolone topical(triamcinolone 0.1% topical ointment), 1 appl, topical, tid, 2 refills Allergies NKA Social History Smoking Status Never smoked cigarettes Alcohol - Low Risk Use:Current Type:Beer, Wine, Liquor Frequency:1-2 times per week 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 Cardiovascular disease: Father. Cardiovascular disease: Brother. Deep vein thrombosis: Brother. Hypertension: Father. Parkinson disease: Father. Pulmonary embolus......: Brother. Health Status Family Member(s) Family Member(s) Relationship: Father, Name: , Age: 83 Years, Cause: Old age, Parkinsons Relationship: Brother, Name: , Age: Unknown, Cause: Murdered Immunizations Vaccine Date Status hepatitis B adult vaccine 01/25/2022 Given zoster vaccine, inactivated 01/25/2022 Given hepatitis B adult vaccine 12/19/2021 Given tetanus/diphtheria/pertuss, acel (Tdap) 12/19/2021 Given SARS-CoV-2 (COVID-19) mRNA BNT-162b2 vax 01/14/2021 Recorded Comments : 2021-08-25: Historical information-source unspecified SARS-CoV-2 (COVID-19) mRNA BNT-162b2 vax 12/24/2020 Recorded Comments : 2021-08-25: Historical information-source unspecified zoster vaccine, inactivated 06/13/2019 Given measles/mumps/rubella virus vaccine 01[birth year]13[birth year]1967 Recorded Recommendations Health Maintenance Pending(in the next year) OverDue Adult Influenza Vaccine due05/06/24and every 1year Due Adult COVID-19 Vaccination due10/17/24Unknown Frequency Adult Social Determinants of Health Screening due10/17/24Unknown Frequency Satisfied(in the past 1 year) Satisfied Body Mass Index on10/15/24.Satisfied by WALE Oneil Kennie L Lipid Screening on12/26/23.Satisfied by [employer]system, [employer] Electronic Signature on File Electronically Reviewed/Signed by: Kaden Galvez MD Author Signature Dt/Tm:10/17/2024 01:15 PM Resident Department of Family Medicine Electronically Reviewed/Signed by: All Sharpe MD Cosigner Signature Dt/Tm: 10/18/2024 10:14 PM Assoc. Professor, [facility] [address] [place] [id number] , Patient Care team information Care Team Personnel Name: MD Pichardo Michael P Position: Physician - Family Med Member Role: Primary Care Provider Address: [address] [place] [address] [place] Name: DO Durham Kristen M Position: Physician - Family Med Member Role: Lifetime Relationship Address: [address] [place] [address] Care Team Related Persons Name: ALEXI CABRALES"
--- OUTSIDE RECORDS SUMMARY | 2024-11-13 05:25 | External Medical Summary | Continuity of Care Document ---
Author Name Unknown Organization [id number] Address [address] [place] [id number] Care Team Providers Care Powerhouse Attendant Name Role Phone Mamadou Pichardo Primary Care Physician [phone] [id number] Date(s): 10/15/24 - 10/15/24 [facility] [place] [id number] [address] [place] [id number] Encounter Diagnosis Osteoarthritis of right shoulder region(Discharge Diagnosis) - 10/15/24 Discharge Disposition: Home or Self Care Attending Physician: CONCHIS Card, Kenna Referring Physician: MD Zamzam, Cal A Allergies, Adverse Reactions, Alerts No Known Allergies Immunizations Given and Recorded Vaccine Date Status [...] Daily, Disp# 90 tab, Refills: 4, Pharmacy: [facility]/pharmacy #[id number] Start Date: 12/30/23 Stop Date: 03/24/25 Status: Ordered ibuprofen Start: 09/21/21 2:57:00 PM EST, 800 mg =, PO, as needed Start Date: 09/21/21 Status: Ordered lisinopril 40 mg oral tablet Start: 12/30/23 8:49:00 AM EST, See Instructions, Disp# 90 tab, Refills: 4, TAKE 1 TABLET BY MOUTH EVERY DAY at hs, [id number] Start Date: 12/30/23 Status: Ordered meclizine 25 mg oral tablet Start: 03/07/23 2:48:00 PM EDT, 1 tab, PO, tid, Disp# 30 tab, try half a pill on day 1, PRN: as needed for dizziness, [id number] Start Date: 03/07/23 Status: Ordered Metoprolol Tartrate 25 mg oral tablet 1 tab, PO, Daily, TAKE 1 TABLET ORALLY TWICE A DAY NEEDED FOR PALPITATIONS Start Date: 06/30/23 Status: Ordered multivitamin Start: 10/16/10 9:04:35 AM EST, 1 cap, PO, Daily, Refills: 0, current medication from another provider Start Date: 10/16/10 Status: Ordered Athens-3 oral capsule Start: 06/04/19 1:02:00 PM EDT, Daily Start Date: 06/04/19 Status: Ordered Sutab oral tablet Start: 08/30/23 7:21:00 AM EDT, See Instructions, Disp# 24 tab, Refills: 0, Follow instructions from [facility] Sutab Coupon: BIN: [id number] PCN: [id number] Group: [id number] , Pharmacy: [facility]/pharmacy #[id number] Start Date: 08/30/23 Status: Ordered triamcinolone 0.1% topical ointment Start: 06/30/23 12:34:00 PM EDT, 1 appl, topical, tid, Disp# 60 g, Refills: 2, as directed apply a thin film to affected area, Pharmacy: [facility]/pharmacy #[id number] Start Date: 06/30/23 Stop Date: 09/28/23 Status: Ordered Vitamin D3 5000 intl units (125 mcg) oral capsule Start: 11/10/20 4:36:00 PM EST Start Date: 11/10/20 Status: Ordered Mental Status 10/15/24 Barriers to Learning one year None evide nt Mandatory Health Literacy Documentation Yes Health Literacy Communication Barriers N ever Primary Language Indonesian Problem List Condition Confirmation Course Effective Dates [...] Confirmed Active WRIST FRACTURE 2 Confirmed Active 2right - l987 Diagnosis Diagnosis Type Effective Dates Health Status Clinical Service Informant Osteoarthritis of right shoulder region Discharge Diagnosis 10/15/24 Non-Specified Procedures Procedure Date Related Diagnosis Body [...] 10/04/20 Completed Colonoscopy 11, 12 11/17/17 Comple cher Shave biopsy 11/20/15 Completed History of lumbar [...] artery pressures. No previous studies for comparison [id number] 10No acute process 11non bleeding internal hemorrhoids. Diverticulosis in the sigmoid colon. One 3 mm polyp a the hepatic flexure,removed with old biopsy forceps. 12pathology-tubular adenoma 13disc resection 14right knee - Dr. Hutchison Vital Signs Most recent to oldest [Reference Range]: 1 Height 170 cm (10/15/24 1:59 PM) Patient Weight 80 kg (10/15/24 1:59 PM) Body Mass Index 27.68 kg/m2 (10/15/24 1:59 PM) Temperature [36.5-37.9 DegC] 36.1 DegC *LOW* (10/15/24 1:59 PM) Heart Rate 62 bpm (10/15/24 1:59 PM) Blood Pressure 120/70mmHg (10/15/24 1:59 PM) Cuff Pulse Pressure 50 mmHg (10/15/24 1:59 PM) Social History Social History Type Response Tobacco Former smoker, Cigar ettes, 15 year(s). Total pack years: 15. 1 Smoking Status Never smoked cigaret jessika Sex Male Sex Representation Male (finding) 1QUIT in 2011 Pre-OP H & P * CONCHIS Card [place]: PERFORM, MODIFY Event Display: Pre-OP H & P Authored Date: [id number] Name:NISHA CABRALES Rashawn Patient Number:[id number] :1965 Date of Service:10/16/2024 Procedure:Right total shoulder arthroplasty versus reverse total shoulder arthroplasty Chief Complaint R shoulder pre op History of Present Illness Patient is a59 year-oldmalepresenting today for their pre-operative history and physical examination for the above-noted surgery with Abelardo. He has tried conservative treatment including injections which were not helpful for him. Heis passionate about golf and would like to continue doing this. He has elected to proceed with surgical intervention. Review of Systems DeniesRecent illnesses, colds/flu, pneumonia, COVID or COVID exposures; DeniesFevers, chills, malaise; DeniesChest pain, heart palpitations; DeniesShortness of breath, cough; DeniesHeadacheor blurry vision; DeniesAbdominal pain, nausea, vomiting, diarrhea, or urinary symptoms Physical Exam Vitals & Measurements T:36.1C HR:62(Monitored) BP:120/70 SpO2:97% HT:170cm WT:80kg WT:80.000kg(Dosing) BMI:27.68 General: Pt is well nourished, seated on the exam table AA&O, in NAD, calm and cooperative during exam HENT: Nontraumatic, no gross deformity, hearing and vision grossly in-tact, PERRL Heart: +S1, +S2, RRR, no murmurs appreciated Lungs: CTABL, no wheezing appreciated Focusing on the patient'srightupper extremity: 2+ radial pulse Sensation to light touch is intact distally Motor to the median, radial, ulnar, AIN, PIN, musculocutaneous nervesis intact. Full range of motion of their elbow, forearm, and wrist. Forward elevation 125; Abduction 125; External rotation 20; internal rotationto back pocket. + Tenderness to palpation around AC joint Diagnostic Results Dr Wyman interpreted an MRI of the right shoulder from07/16/24 which showssevere degenerative changes in glenohumeral and AC joints. No full thickness rotator cuff tear, but there is some thinning of the supraspinatus. 3views, AP, Scapulary Y, and axillaryof theright shoulderobt[facility] Mcknighthow severe degenerative changes with large inferiorhumeral head osteophyte, [id number]. Slightly progressed in the last [address] scan of the right shoulder for preoperative shnsenhb52/28/2024 Assessment/Plan Osteoarthritis of right shoulder region Preop The risks and benefits of surgery as well as the post operative course was explained and discussed with the patient. Written consent obtained. The patient's past medical history, surgeries, social history, medication list, allergies and PDMP were reviewed and confirmed with the patient. Patientbridget needmedical clearanceand sees [id number]. 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 He does not regularly follow with a triage technician anymore.He saw anesthesia today.Preoperative orders were placed. We discussed postoperative pain medications includingoxycodone, tylenol,as well as icing and elevating to control pain. We discussed post operative DVT prophylaxis,ASA 81mg BID x 6 weeks, CHER stockings x 3 weeks. Patientmay needthe following additional medications after surgery -stool softener as needed to prevent constipation while on narcotics. The patient has been scheduled for post operative appointments. Physical therapy prescription was placed. The patient was given a preoperative booklet and we reviewed the most pertinent things leading up to the surgery and the day of surgery; including any assisted devices pt may need, when/who to call for the surgery time, where to arrive the dayof surgery, NPO after midnight, medications to hold, prepping the skin with CHG to prevent infection etc. All of their questions and concerns were answered today. They were instructed to call our office if they have any further questions or concerns. Problem List/Past Medical History Ongoing Afib Annual physical exam Anxiety BONE'S PALSY Biceps tendon DEPRESSION Dyslipidemia FH: cardiovascular disease Former smoker Glenohumeral arthritis Hemangioma HTN - Hypertension Prediabetes, prediabetic Right shoulder pain Seborrheic keratosis Skin lesion Skin lesion of face Strain of calf muscle Thrombosed hemorrhoids Tinnitus Weight disorder WRIST FRACTURE Resolved Community acquired pneumonia Cough Gastroenteritis HDL Knee injury Knee pain Pes anserine bursitis Procedure/Surgical History Colonoscopy| Service Date: 09/02/2023oronary artery calcium score| Service Date: 08/22/2023MRI of head| Service Date: 05/17/2023Shave biopsy and cauterization of skin| Service Date: 2CXR - Chest X-ray| Service Date: 05/17/2021hest CT| Service Date: 05/17/2021ardiac echo| Service Date: 12/01/2020hest x-ray| Service Date: 10/04/2020Colonoscopy| Service Date: 11/17/2017Shave biopsy| Service Date: 11/20/2015History of lumbar spine surgery| Service Date:11/07/2013rthroscopy| Service Date: 11/07/2005Left ulnar nerve| Service Date: 2003 Medications Home cholecalciferol(Vitamin D3 5000 intl units (125 mcg) oral capsule) ibuprofen, 800 mg, PO lisinopril(lisinopril 40 mg oral tablet), See Instructions, 4 refills magnesium sulfate/potass Cl/sodium sulf(Sutab oral tablet), See Instructions meclizine(meclizine 25 mg oral tablet), 25 mg= 1 tab, PO, tid, PRN metoprolol(Metoprolol Tartrate 25 mg oral tablet), 25 mg= 1 tab, PO, Daily multivitamin, 1 cap, PO, Daily omega-3 polyunsaturated fatty acids(Athens-3 oral capsule), Daily rosuvastatin(Crestor 10 mg oral tablet), 10 mg= 1 tab, PO, Daily, 4 refills triamcinolone topical(triamcinolone 0.1% topical ointment), 1 appl, topical, tid, 2 refills Allergies NKA Social History Alcohol - Low Risk Use:Current Type:Beer, Wine, [...] 06/13/2019 Given measles/mumps/rubella virus vaccine 01[birth year]13/1967 Recorded Electronic Signature on File Electronically Reviewed/Signed by: Kenna Card PA-C Author Signature Dt/Tm:10/16/2024 02:20 PM Physician Interim Controller, [facility] [place] [address] Electronically Reviewed/Signed by: Kenna Card PA-C Cosigner Signature Dt/Tm: 10/16/2024 02:21 PM Physician Interim Controller, [facility] [address], [place] [address] Electronically Reviewed/Signed by: Cal Wyman MD Cosigner Signature Dt/Tm: 10/16/2024 02:42 PM [facility] Cooking Instructor Department of Orthopaedics and Rehabilitation [facility] [address], [place] [address] Patient Care team information Care Team Personnel Name: MD Pichardo Michael P Position: Physician - Family Med Member Role: Primary Care Provider Address: [address] [place] [address] [address] [place] [address] [place] Name: DO Durham Kristen M Position: Physician - Family Med Member Role: Lifetime Relationship Address: [address] [place] [address] [address] [place] [address] [place] Care Team Related Persons Name: ALEXI CABRALES"
--- OUTSIDE RECORDS SUMMARY | 2024-11-13 05:25 | External Medical Summary | Continuity of Care Document ---
Author Name Unknown Organization [facility] [id number] Address [address] [place] [phone] Care Team Providers Care Senior Portfolio Manager Name Role Phone Mamadou Pichardo Primary Care Physician [phone] [facility] [id number] Date(s): 10/15/24 - 10/15/24 [facility] 0 [place] [id number] [facility] Medicine [address] [place] [id number] Encounter Diagnosis Osteoarthritis of right shoulder region(Discharge [...] Disp# 90 tab, Refills: 4, Pharmacy: [facility]/pharmacy #[id number] Start Date: 12/30/23 Stop Date: 03/24/25 Status: Ordered ibuprofen Start: 09/21/21 2:57:00 PM EST, 800 mg =, PO, as needed Start Date: 09/21/21 Status: Ordered lisinopril 40 mg oral tablet Start: 12/30/23 8:49:00 AM EST, See Instructions, Disp# 90 tab, Refills: 4, TAKE 1 TABLET BY MOUTH EVERY DAY at hs, [id number] Start Date: 12/30/23 Status: Ordered meclizine 25 mg oral tablet Start: 03/07/23 2:48:00 PM EDT, 1 tab, PO, tid, Disp# 30 tab, try half a pill on day 1, PRN: as needed for dizziness, [id number] Start Date: 03/07/23 Status: Ordered Metoprolol Tartrate 25 mg oral tablet 1 tab, PO, Daily, TAKE 1 TABLET ORALLY TWICE A DAY NEEDED FOR PALPITATIONS Start Date: 06/30/23 Status: Ordered multivitamin Start: 10/16/10 9:04:35 AM EST, 1 cap, PO, Daily, Refills: 0, current medication from another provider Start Date: 10/16/10 Status: Ordered [place]-3 oral capsule Start: 06/04/19 1:02:00 PM EDT, Daily Start Date: 06/04/19 Status: Ordered Sutab oral tablet Start: 08/30/23 7:21:00 AM EDT, See Instructions, Disp# 24 tab, Refills: 0, Follow instructions from [facility]oscopy center Sutab Coupon: BIN: [id number] PCN: [id number] Group: [id number] , Pharmacy: [facility]/pharmacy #[id number] Start Date: 08/30/23 Status: Ordered triamcinolone 0.1% topical ointment Start: 06/30/23 12:34:00 PM EDT, 1 appl, topical, tid, Disp# 60 g, Refills: 2, as directed apply a thin film to affected area, Pharmacy: [facility]/pharmacy #[id number] Start Date: 06/30/23 Stop Date: 09/28/23 Status: Ordered Vitamin D3 5000 intl units (125 mcg) oral capsule Start: 11/10/20 4:36:00 PM EST Start Date: 11/10/20 Status: Ordered Mental Status 10/15/24 Barriers to Learning one year None evide nt Mandatory Health Literacy Documentation Yes Health Literacy Communication Barriers N ever Primary Language Danish Problem List Condition Confirmation Course Effective Dates [...] artery pressures. No previous studies for comparison [id number] 10No acute process 11non bleeding internal hemorrhoids. [...] Display: Pre-OP H & P Authored Date: [id number] Name:NISHA CABRALES Rashawn Patient Number:[id number] :1965 Date of Service:10/16/2024 Procedure:Right total shoulder [...] Y, and axillaryof [facility]right [facility] Mcknighthow severe degenerative changes with large inferiorhumeral head osteophyte, [id number]. Slightly progressed in the last [address] scan of the right shoulder for preoperative adtxrivb00/28/2024 Assessment/Plan Osteoarthritis of right shoulder region Preop The risks and benefits of surgery as well as the post operative course was explained and discussed with the patient. Written consent obtained. The patient's past medical history, surgeries, social history, medication list, allergies and PDMP were reviewed and confirmed with the patient. Patientbridget needmedical clearanceand sees [id number]. 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 He does not regularly follow with a lehr loader anymore.He saw anesthesia today.Preoperative orders were placed. [...] 1 cap, PO, Daily omega-3 polyunsaturated fatty acids([place]irmingham-3 oral capsule), Daily rosuvastatin(Crestor 10 mg oral [...] Signature on File Electronically Reviewed/Signed by: Kenna Crad PA-C Author Signature Dt/Tm:10/16/2024 02:20 PM Physician Jet Engine Mechanic, [facility] [place] [address] Electronically Reviewed/Signed by: Kenna Card PA-C Cosigner Signature Dt/Tm: 10/16/2024 02:21 PM Physician Jet Engine Mechanic, [facility] [address], [place] [address] Electronically Reviewed/Signed by: Cal Wyman MD Cosigner Signature Dt/Tm: 10/16/2024 02:42 PM [facility] Purchasing Engineer Department of Orthopaedics and Rehabilitation [facility] [address], [place] [address] Patient Care team information Care Team Personnel Name: MD Pichardo Michael P Position: Physician - Family Med Member Role: Primary Care Provider Address: [address] [place] [address] [address] [place] [address] [place] Name: DO Durham Kristen M Position: Physician - Family Med Member Role: Lifetime Relationship Address: [address] [place] [address] [address] [place] [address] [place] Care Team Related Persons Name: ALEXI CABRALES"
[2024-11-13] MEDS: CeleBREX 200 MG CAP PO SCH (05:45)
[2024-11-13] MEDS: ACETAMINOPHEN 500 MG TAB PO SCH ×2 (05:45→15:00)
[2024-11-13] MEDS: LR 60ML/HR IV SCH (05:45)
[2024-11-13] MEDS: TRANEXAMIC ACID 1,000 MG **IV Intra-op IV SCH (05:46)
[2024-11-13] MEDS: LR 15ML/HR IV SCH (05:47)
[2024-11-13] MEDS: Scopolamine 1 MG TDSY TD SCH (06:06)
[2024-11-13] MEDS ORDERED: BUPIVACAINE 0.5 % 5 MG/1 ML PF 10ML VIAL ONE (06:30)
[2024-11-13] MEDS ORDERED: ROCURONIUM BROMIDE 10 MG/ML 5 ML VIAL IV ONE ×2 (06:43→08:37)
[2024-11-13] MEDS ORDERED: fentaNYL citrate PF 100 MCG/2 ML VIAL ONE (06:43)
[2024-11-13] MEDS ORDERED: MIDAZOLAM HCL 1 MG/ML 2ML VIAL ONE (06:43)
[2024-11-13] MEDS ORDERED: LIDOCAINE 2% 2 ML VIAL/AMP(20MG/ML) INFIL ONE (06:43)
[2024-11-13] MEDS ORDERED: PROPOFOL IV EMULSION 10 MG/ML 20 ML VIAL IV ONE (06:43)
--- NOTE | 2024-11-13 06:46 | History & Physical Bridge Note ---
Date of Service November 13, 2024 History & Physical Bridge Note I have examined the patient, reviewed the History & Physical and in the interval since the performance of the History & Physical I have noted the following changes of clinical significance: no changes noted
[2024-11-13] MEDS: TRANEXAMIC ACID 1,000 MG **IV Pre-op IV SCH (06:48)
[2024-11-13] MEDS ORDERED: ONDANSETRON INJ 2 MG/ML 2 ML VIAL IV PRN (06:56)
[2024-11-13] MEDS ORDERED: ePHEDrine sulfate 50 MG/ML AMP IV PRN (06:56)
[2024-11-13] MEDS ORDERED: fentaNYL citrate PF 100 MCG/2 ML VIAL IV PRN (06:56)
[2024-11-13] MEDS ORDERED: ATROPINE SULFATE 0.1 MG/ML 10ML SYR IV PRN (06:56)
[2024-11-13] MEDS ORDERED: HYDROmorphone INJ 2 MG/ML SYR/VIAL IV PRN (06:56)
[2024-11-13] MEDS: ceFAZolin 2000MG 2,000 MG/15 ML SYR IV SCH ×2 (07:10→15:00)
[2024-11-13] MEDS ORDERED: PHENYLEPHRINE HCL 10 MG/ML VIAL ONE (07:24)
[2024-11-13] MEDS ORDERED: DEXAMETHASONE SOD INJ 4 MG/ML VIAL ONE (07:31)
[2024-11-13] MEDS: BUPIVACAINE 0.5 % 5 MG/1 ML MPF 30ML VIAL ONE (07:45)
[2024-11-13] MEDS: LIDOCAINE 1%/EPINEPHRINE 1:100,000 50 ML VIAL ONE (07:45)
[2024-11-13] MEDS ORDERED: VASOPRESSIN 20 UNIT/ML VIAL ONE (07:53)
[2024-11-13] MEDS ORDERED: GLYCOPYRROLATE 0.2 MG/ML VIAL ONE (08:26)
[2024-11-13] MEDS ORDERED: SUGAMMADEX SODIUM 200 MG/2 ML VIAL IV ONE (10:58)
--- NOTE | 2024-11-13 11:07 | Post Operative Brief Note ---
Immediate Post Op Note Date of Surgery November 13, 2024 Pre & Post Diagnosis Operation Date: 11/13/24 07:00 Pre-Op Diagnosis: Right Shoulder Glenohumeral & AC joint Osteoarthritis Post-Op Diagnosis: Right Shoulder Glenohumeral & AC joint Osteoarthritis I identified the patient and participated in the time-out.: Yes Procedure Operation Date: 11/13/24 07:00 Actual Procedures p Right Total Shoulder Arthroplasty with Distal Clavicle Excision(Right) - Cal Wyman MD Surgeon Cal Wyman MD Writer Editor C DO Constantin & M MILES CradC Estimated Blood Loss 100 Findings Consistent with Post-Op Diagnosis Fluids 1800 cc Specimens Right Humeral Head Right Distal Clavicle Anesthesia Type General Regional Complications none
--- NOTE | 2024-11-13 11:09 | Operative Report ---
Post Operative Report Pre & Post Diagnosis Operation Date: 11/13/24 07:00 Pre-Op Diagnosis: Right Shoulder Glenohumeral & AC joint Osteoarthritis Post-Op Diagnosis: Right Shoulder Glenohumeral & AC joint Osteoarthritis I identified the patient and participated in the time-out.: Yes Procedure Operation Date: 11/13/24 07:00 Actual Procedures p Right Total Shoulder Arthroplasty with Distal Clavicle Excision(Right) - Cal Wyman MD Surgeon Cal Wyman MD Commercial Title Examiner Shanika Killian DO & Joey Card PA-C Estimated Blood Loss 100 Findings See Below End-stage right glenohumeral arthritis with flattening of the humeral head, large osteophytes of the humeral head and glenoid. Rotator cuff intact. Right AC joint osteoarthritis, with osteophytes. Fluids 1800 cc Specimens Right Humeral Head & distal clavicle Anesthesia Type General Regional Complications none Indications Patient is a 59-year-old male who right shoulder OA, AC joint OA and has pain and decreased function. I recommended the patient undergo a right total shoulder arthroplasty and distal clavicle excision. The patient understands the risks of the operation including bleeding, infection, re-operation, damage to nerves and arteries, continued shoulder pain, shoulder stiffness, infection, and/or loosening of the components requiring revision surgery. The patient also understands the risks of heart attack, stroke, pulmonary embolus, and . The patient wished to proceed and the consent form was signed. Description of Procedure IMPLANTS: 1) Univers VaultLock Augmented Glenoid, Medium, 15R (Arthrex) 2) Eclipse Trunion 49, Shoulder Implant 3) Eclipse Cage Screw, Large 4) Eclipse Humeral Head 49/18, Shoulder implant 5) 2.6mm FiberTak with Labral tape x 3 (Arthrex) 6) 3.9 mm Biocomposite SwiveLock x 2 7) Palacos R cement PROCEDURE: The patient was taken to the Operating Room and placed in the beach-chair position after administration of an interscalene block and general anesthesia. 2 g of intravenous Ancef were administered. The right shoulder was then prepped and draped in the standard sterile fashion. Sequential compression devices were placed on the legs. The multidisciplinary time-out identified the patient and the right shoulder as the correct shoulder. First, the deltopectoral incision was anesthetized with 15 cc of the joint cocktail. Sharp dissection was carried down to the deltopectoral interval. The cephalic vein was identified and protected laterally. Blunt dissection was performed to separate the deltoid from the rotator cuff. The clavipectoral fascia was then incised and a self-retaining shoulder retractor was placed beneath the conjoined tendon and deltoid muscle, exposing the subscapularis tendon. The biceps tendon was identified in its groove and had degeneration and fluid. The biceps tendon was unroofed from its groove, and the rotator interval was split to the base of the coracoid. The Pectoralis Major tendon was released approximately 1-2 cm. The biceps and Pec were tagged with a 0 Vicryl. The biceps was released from the glenoid rim and near the Pec. The 3 sisters were cauterized and the Subscapularis tendon was peeled off the humerus, exposing the humeral head as the arm was externally rotated. Traction sutures were placed in the Subscapularis with an 0 Vicryl. Next, the humeral head was dislocated with the arm adducted, extended using a 90 degree Jessica protecting the Supraspinatus and externally rotated and using Brown retractor to protect the deltoid and displace the humeral head anterior. A capsulotomy was carried down all the way around to the posterior aspect of the humeral head, taking care to stay on bone. We exposed the humeral osteophytes anterior, inferiorly. These osteophytes were removed with a rongeur to identify the medial calcar on the humeral neck. Next, using the Fixed angle cutting guide was placed and held with a guide pin to allow rotation so that the humeral osteotomy was performed in 30 degrees of retroversion using the guide that was pinned in place. The 49 Trunnion fit best and the pins were impacted to hold the guide in place. The floorhand was used in the standard fashion to prepare for the Eclipse screw. A centralizer was placed and using the guide pin the length of the screw was measured. A protective cap was placed over top of the osteotomy site. The glenoid was exposed with a Dilan retractor anteriorly, 90 degree Jessica posterior superiorly, and Batman initially and then switch to the Tornier retractor posteriorly displacing the humeral head posterior and inferior. A capsulotomy was preformed anteriorly and the labrum was circumferentially released and removed. Using the VIP aiming guide based on preoperative planning a guide pin was placed centrally. Then the glenoid was reamed to bleeding surface. The remaining anterior osteophytes were removed with a rongeur. The central barge pilot hole was created with the drill. The guide for the Univers VaultLock was placed in the standard fashion centered using the central barge pilot hole. Once it was seated in the proper position, the 6mm drill was used to create the superior hole and the drill was right in place to further stabilize the guide. The 3 inferior holes were placed using the 4.5mm drill. The guide was removed and the glenoid broach was used to complete the glenoid preparation. The medium trial fit well. Bone from the humeral head reaming was placed around the central peg in the standard fashion. Palacos cement was placed in the superior and inferior holes. The glenoid was placed in the standard fashion. After the cement had cured the glenoid was well secured. Our attention returned to the humeral head and the centralizer was placed followed by the Trunnion which was impacted into place in the standard fashion. 3 FiberTak anchors were placed for the medial row Subscapularis repair. The central screw was placed securing the Trunnion in place. Trial heads were placed and the 49/18 had excellent stability and 1+ translation anteriorly and posteriorly with good bounce back to the glenoid. Using the guide to avoid the Eclipse screw, 2 drill holes were placed for the lateral row. The definitive humeral head was then impacted into place on the trunnion. Again, there was excellent stability and ROM forward flexion 165 degrees and Abduction 165 degrees, ER 75 degrees, IR 50 degrees. The Labral Tape from each anchor was passed through the Subscapularis tendon, where 1 suture from each anchor would later be placed in the lateral row. The FiberWire sutures from each anchor were also passed through the Subscapularis tendon. The FiberWire suture previously passed were then sequentially tied. The Lateral row anchors previously drilled along the bicipital groove and the 3 Labral Tape, I from each anchor was placed in each lateral row anchor in the standard fashion. The superior aspect of the subscapularis tendon was then closed with FiberTape. The humeral head was no longer visible. The biceps was tenodesed to the pectoralis major tendon with #1 Vicryl. The pulsatile lavage was used to copiously irrigate the wound throughout the case. Our attention was drawn to the AC joint and the extended incision that had been carried down to the Superior AC joint ligament to the posterior aspect of the clavicle was used. A longitudinal incision was made in-line with the fibers of the superior AC joint ligament. The posterior and anterior aspect of the clavicle was exposed and using a sagittal saw the distal 7 mm was removed. A rasp was used to smooth out the edges. The wound was copiously irrigated. Bone wax was placed along the exposed bone. There was adequate space. The Superior AC joint ligament was closed with #1 Vicryl.The deltopectoral interval was re-approximated with #1-Vicryl, the subcutaneous tissue was closed with 3-0 Vicryl, and the skin was closed with ZipeLine and shield. The wounds were dressed with 4x4's and Degaderm. The sponge and needle count were correct. The patient was then transferred to the PACU in stable condition after application of an abduction sling. POST-OP INSTRUCTIONS: The patient will be admitted for observation. Remain in the sling with abduction pillow for 4 weeks and another 2 weeks without the pillow. Will work with PT/OT. Pain control with Tylenol, NSAIDs, and breakthrough narcotics. I attest to the content of the Intraoperative Record and any orders documented therein. Any exceptions are noted below.
[2024-11-13] MEDS: ROPIV 0.5% 246mg, Ketorolac 30mg, EPINEPHrine 0.5mg in NSS INFIL SCH (11:15)
--- NOTE | 2024-11-13 11:46 | Operative Report ---
Post Operative Report Pre & Post Diagnosis Operation Date: 11/13/24 07:00 Pre-Op Diagnosis: Right Shoulder Osteoarthritis Post-Op Diagnosis: Right Shoulder Osteoarthritis I identified the patient and participated in the time-out.: Yes Procedure Operation Date: 11/13/24 07:00 Actual Procedures p Right Total Shoulder Arthroplasty with Distal Clavicle Excision(Right) - Cal Wyman MD Surgeon Cal Wyman MD Technician Inventory Specialist Shanika Killian DO & Joey Card PA-C Estimated Blood Loss 100 Findings Consistent with Post-Op Diagnosis Specimens Right Humeral Head & distal clavicle Description of Procedure Patient was brought to the operative suite where he underwent general anesthesia. He was placed in the beachchair position. The right upper extremi ty was prepped and draped in usual sterile fashion. A surgical timeout was performed. Patient underwent a right anatomic total shoulder arthroplasty with distal clavicle excision. Please see Dr. Wyman's operative report for full details. I was present and assisted with patient positioning, limb positioning, soft tissue retraction, hemostasis, surgical approach, hardware placement, wound closure, postoperative dressing placement. The patient was awakened and taken to the recovery room in satisfactory condition. I attest to the content of the Intraoperative Record and any orders documented therein. Any exceptions are noted below.
--- NOTE | 2024-11-13 12:28 | XRay Report ---
XR shoulder RT min 2V routine CLINICAL HISTORY: Post shoulder surgery TECHNIQUE: 3 views of the right shoulder were obtained. Comparison: Comparison is made to right shoulder radiographs 07/04/2024 FINDINGS: Postoperative changes are seen of right shoulder hemiarthroplasty. Degenerative changes are seen in t he joint space. IMPRESSION: Postoperative appearance status post hemiarthroplasty. ACT 112: Negative or not required by law. Electronically signed by: Orlando Crabtree M.D. 11/13/2024 12:26 PM
--- NOTE | 2024-11-13 12:32 | Anesthesiology Progress Note ---
Date of Service November 13, 2024 Anesthesia Post Procedure Vital Signs Vital Signs: Temp Pulse Pulse Resp BP Pulse Ox O2 Del Method 11/13/24 12:20 36.4 C L 77 18 90/57 L 94 Nasal Cannula 11/13/24 12:10 78 12 94/58 L 93 Room Air 11/13/24 12:00 36 C L 86 16 97/58 L 94 Room Air 11/13/24 11:50 80 16 103/57 L 96 Oxymask 11/13/24 11:40 36 C L 86 16 95/62 L 98 Oxymask 11/13/24 05:37 36.5 C 63 20 120/84 96 Room Air O2 Flow Rate 11/13/24 12:20 2 11/13/24 12:10 11/13/24 12:00 11/13/24 11:50 4 11/13/24 11:40 8 11/13/24 05:37 Pain Intensity Right Shoulder: Pain Intensity: 3 Transfer of Care Handoff Completed per policy Notes Mental Status: alert / awake / arousable and participated in evaluation Patient Amnestic to Procedure: Yes Nausea / Vomiting: improving with treatment Pain: adequately controlled and improving with treatment Airway Patency, RR, SpO2: stable & adequate BP & HR: stable & adequate Hydration State: stable & adequate Anesthetic Complications: no major complications apparent and Pt Satisfied with anesthetic care Notes: Pt interscalene block is functioning well. Arm in sling
[2024-11-13] MEDS ORDERED: TAMSULOSIN HCL 0.4 MG CAP PO PRN (12:52)
[2024-11-13] MEDS ORDERED: NALOXONE HCL 0.4 MG/1 ML VIAL/CARP IV PRN (12:52)
[2024-11-13] MEDS ORDERED: diphenhydrAMINE Capsule 25 MG CAP PO PRN (12:52)
[2024-11-13] MEDS ORDERED: METOCLOPRAMIDE HCL INJ 5 MG/ML 2 ML VIAL IV PRN (12:52)
[2024-11-13] MEDS ORDERED: MAGNESIUM HYDROXIDE SUSP 30 ML UDC PO PRN (12:52)
[2024-11-13] MEDS ORDERED: METOPROLOL TARTRATE 25 MG TAB PO PRN (12:52)
[2024-11-13] MEDS ORDERED: bisacodyL 10 MG SUPP PR PRN (12:52)
[2024-11-13] MEDS: ONDANSETRON INJ 2 MG/ML 2 ML VIAL IV PRN (13:11)
--- NOTE | 2024-11-13 14:31 | Orthopedic Progress Note ---
Date of Service November 13, 2024 Assessment & Plan (1) Osteoarthritis, shoulder: Plan: POD #0 s/p R TSA, doing as well as expected. Resume diet. WBAT. OOB to chair. Continue pain control. Check labs tomorrow. DVT prophylaxis: TEDs 3 weeks, foot pumps while in hospital, ASA 81 mg BID for 3 weeks. Abduction sling 4 weeks, is allowed to come out and move his elbow. PT/OT. D/C planning. Dressing to be changed to Silverlon type dressing. Present on Admission?: Yes Admission and Anticipated Discharge Date Admission Date: November 13, 2024 Subjective Feeling tired and a bit nauseous. Physical Exam Physical Exam: RUE: Sling in place, Abduction pillow in bed. Dressing is clean, dry, intact. Able to wiggle fingers. Decreased sensation to ulnar 3 digits. 2 + radial pulse. Results & Data Vital Signs (Past 12 Hours) Vital Signs Temp Pulse Pulse Resp BP Pulse Ox O2 Del Method 11/13/24 14:00 36.5 C 67 18 121/76 96 Nasal Cannula 11/13/24 13:30 36.4 C L 66 16 102/67 95 Nasal Cannula 11/13/24 13:00 Nasal Cannula 11/13/24 13:00 36.4 C L 73 18 94/59 L 93 Nasal Cannula 11/13/24 12:35 77 16 103/68 94 Nasal Cannula 11/13/24 12:20 36.4 C L 77 18 90/57 L 94 Nasal Cannula 11/13/24 12:10 78 12 94/58 L 93 Room Air 11/13/24 12:00 36 C L 86 16 97/58 L 94 Room Air 11/13/24 11:50 80 16 103/57 L 96 Oxymask 11/13/24 11:40 36 C L 86 16 95/62 L 98 Oxymask 11/13/24 05:37 36.5 C 63 20 120/84 96 Room Air O2 Flow Rate 11/13/24 14:00 4 11/13/24 13:30 4 11/13/24 13:00 4 11/13/24 13:00 4 11/13/24 12:35 2 11/13/24 12:20 2 11/13/24 12:10 11/13/24 12:00 11/13/24 11:50 4 11/13/24 11:40 8 11/13/24 05:37 Diagnostic Findings 2 views right shoulder show expected findings s/p Right total shoulder art hroplasty.
[2024-11-13] MEDS: Scopolamine CHECK PATCH PLACEMENT SCH (15:01)
[2024-11-13] MEDS: ASCORBIC ACID 500 MG TAB PO SCH (16:52)
[2024-11-13] MEDS: FERROUS GLUCONATE 324 MG TAB PO SCH (16:52)
[2024-11-13] MEDS: CEROVITE ADV FORMULA TAB PO SCH (20:46)
[2024-11-13] MEDS: VITAMIN B COMPLEX TAB PO SCH (20:46)
[2024-11-13] MEDS: oxyCODONE HCL IR 5 MG TAB (IMMEDIATE RELEASE) PO PRN (20:46)
[2024-11-13] MEDS: ASPIRIN 81 MG ECTAB PO SCH (20:46)
[2024-11-13] MEDS: SENNA 8.6 MG TAB PO SCH (20:47)
[2024-11-13] MEDS: DOCUSATE SODIUM 100 MG CAP PO SCH (20:47)
[2024-11-14 02:52] VITALS: TEMP 98.1
[2024-11-14 08:05] VITALS: BP 138/80; O2SAT 96
[2024-11-14 08:25] LABS: Basophils # (auto) 0.01 K/uL (0.00-0.20); Basophils % (auto) 0.1 %; Eosinophils # (auto) 0.01 K/uL (0.00-0.50); Eosinophils % (auto) 0.1 %; Hemoglobin 12.1 g/dl (14.0-18.0); Immature Granulocytes # (auto) 0.05 K/uL (0.01-0.20); Immature Granulocytes % (auto) 0.4 %; Lymphocytes # (auto) 1.69 K/uL (1.20-3.40); Lymphocytes % (auto) 13.9 %; Mean Corpuscular Hemoglobin 32.4 pg (25.0-34.0); Mean Corpuscular Hgb Conc 34.6 g/dL (32.0-36.0); Mean Corpuscular Volume 93.6 fL (80.0-100.0); Mean Platelet Volume 9.9 fL (9.4-12.4); Monocytes % (auto) 11.5 %; Neutrophils # (auto) 9.01 K/uL (1.40-6.50); Platelet Count 224 K/uL (130-400); RDW Coefficient of Variation 12.6 % (11.5-14.5); RDW Standard Deviation 43.5 fL (36.4-46.3); Red Blood Count 3.74 M/uL (4.70-6.10); White Blood Count 12.17 K/ul (4.8-10.8)
[2024-11-14 08:36] VITALS: RESP 17
[2024-11-14 08:36] LABS: BUN Creatinine Ratio 22.9 (10-20); Calcium 8.6 mg/dl (8.6-10.3); Creatinine Clr Calc Pharmacy 111.3 ml/min; Potassium 3.8 mmol/L (3.5-5.1)
--- NOTE | 2024-11-14 09:07 | Orthopedic Progress Note ---
Date of Service November 14, 2024 Assessment & Plan (1) Osteoarthritis, shoulder: Plan: POD #1 s/p R TSA, doing as well as expected. Resume diet. WBAT. OOB to chair. Continue pain control. DVT prophylaxis: TEDs 3 weeks, foot pumps while in hospital, ASA 81 mg BID for 3 weeks. Abduction sling 4 weeks, is allowed to come out and move his elbow. PT/OT. D/C planning home later today if passes PT. Dressing to be changed to Silverlon type dressing. F/U in Dr. Wyman's office in 2 weeks. Admission and Anticipated Discharge Date Admission Date: November 13, 2024 Subjective Feeling alright, oral pain medicine is working th block is slowly wearing off. Physical Exam Physical Exam: RUE: Abduction Sling in place. Dressing is clean, dry, intact. Able to wiggle fingers, able to flex at elbow. Decreased sensation to Thumb and index finer. Sensation to lateral shoulder intact. 2 + radial pulse. Results & Data Vital Signs (Past 12 Hours) Vital Signs Temp Pulse Pulse Resp BP Pulse Ox O2 Del Method 11/14/24 07:55 36.7 C 68 17 138/80 96 Room Air 11/14/24 07:45 36.7 C 70 14 109/68 95 Room Air 11/14/24 02:51 36.7 C 70 16 96/57 L 93 Room Air 11/13/24 22:28 36.5 C 81 16 101/66 97 Room Air 11/13/24 22:10 Room Air Laboratory Results 11/14/24 Range/Units 07:35 WBC 12.17 H (4.8-10.8) K/ul RBC 3.74 L (4.70-6.10) M/uL Hgb 12.1 L (14.0-18.0) g/dl Hct 35.0 L (42.0-52.0) % MCV 93.6 (80.0-100.0) fL MCH 32.4 (25.0-34.0) pg MCHC 34.6 (32.0-36.0) g/dL RDW Std Deviation 43.5 (36.4-46.3) fL RDW Coeff of Carrie 12.6 (11.5-14.5) % Plt Count 224 (130-400) K/uL MPV 9.9 (9.4-12.4) fL Immature Gran % (Auto) 0.4 % Neut % (Auto) 74.0 % Lymph % (Auto) 13.9 % [place] % (Auto) 11.5 % Eos % (Auto) 0.1 % Baso % (Auto) 0.1 % Neut # (Auto) 9.01 H (1.40-6.50) K/uL Lymph # (Auto) 1.69 (1.20-3.40) K/uL [place] # (Auto) 1.40 H (0.11-0.59) K/uL Eos # (Auto) 0.01 (0.00-0.50) K/uL Baso # (Auto) 0.01 (0.00-0.20) K/uL Immature Gran # (Auto) 0.05 (0.01-0.20) K/uL Sodium 138 (136-145) mmol/L Potassium 3.8 (3.5-5.1) mmol/L Chloride 104 (98-107) mmol/L Carbon Dioxide 29 (21-32) mmol/L Anion Gap 5 (3-11) BUN 16 (6-23) mg/dl Creatinine 0.70 (0.6-1.4) mg/dl Est Cr Clr Drug Dosing 111.3 ml/min eGFR 106.80 BUN/Creatinine Ratio 22.9 H (10-20) Glucose 112 H (70-99(Fasting)) mg/dl Calcium 8.6 (8.6-10.3) mg/dl
[2024-11-14] MEDS: lisinopril 40 MG TAB PO SCH (10:09)
--- NOTE | 2024-11-14 10:11 | Discharge Summary ---
Date of Service November 14, 2024 Discharge Data Procedures Performed Operation Date: 11/13/24 07:00 Actual Procedures p Right Total Shoulder Arthroplasty with Distal Clavicle Excision(Right) - Cal Wyman MD Hospital Course (1) Status post total replacement of right shoulder: Patient was kept in observation at [facility] after undergoing an elective right total shoulder arthroplasty with Dr. Wyman on November 13, 2024. Surgery was performed due to underlying osteoarthritis of his right shoulder. Postoperative x-rays confirmed prosthesis to be in good position. He was al lowed to have a regular diet after surgery. His home medications were continued. He was allowed out of bed to chair with assistance. He was placed in a sling of his right upper extremity and advised to keep the sling on at all times. He was seen and evaluated by occupational and physical therapy and they taught him how to ambulate, get dressed and do range of motion of his fingers wrist forearm and elbow. For DVT prophylaxis he was provided CHER stockings, knee-high for 3 weeks after surgery. Also was given AV impulse boots during his inpatient stay. He was also started on aspirin 81 mg twice daily for DVT prophylaxis that will be continued for 3 to 4 weeks after surgery. On postoperative day 1 his dressing was changed to a Silverlon dressing. His Zipline was clean, dry and intact. No active drainage from the incision itself. Mild ecchymosis and erythema into the axilla and lower arm as expected. His vital signs were stable. Postoperative lab results performed on postoperative day 1 showed a white blood cell count of 12.17, hemoglobin 12.1, hematocrit 35.0, platelet count of 224. He did not develop any postoperative nausea, vomiting, lightheadedness or dizziness. Discharge instructions were reviewed. All questions were answered. He will follow-up as instructed in approximately 2 weeks. He did well with occupational and physical therapy and was deemed safe for discharge home. He was discharged to his home in stable condition with home health services on November 14, 2024.
[2024-11-14 11:05] VITALS: PULSE 70
== END 2024-11-14 12:17 | disposition home health service (06) ==
LOC: ASU 05:22 → 3N 05:22